=== PATIENT | female | born 1965 | race Two or more races ===

== ENCOUNTER 2016-11-24 19:58 | Inpatient (IN) | payer OTHER ==
[2016-11-24 20:32] VITALS: BMI 25.7
--- NOTE | 2016-11-24 20:32 | HP ---
CIWA Score - CIWA Score Nausea/Vomitin-Mild Nausea/No Vomiting Muscle Tremors: 3 Anxiety: 4-Mod. Anxious/Guarded Agitation: 4-Moderately Restless Paroxysmal Sweats: 1-Minimal Palms Moist Orientation: 1-Uncertain about Date Tacttile Disturbances: 0-None Auditory Disturbances: 0-None Visual Disturbances: 0-None Headache: 1-Very Mild CIWA-Ar Total Score: 15 Admission ROS S - HPI Chief Complaint: WITHDRAWAL SX Allergies/Adverse Reactions: Allergies Allergy/AdvReac Type Severity Reaction Status Date / Time No Known Allergies Allergy Verified 11/24/16 20:36 History of Present Illness: 51 YEARS OLD FEMALE WITH LONG HISTORY OF XANAX KLONOPIN NICOTINE DEPENDENCE, HIV HEPATITIS C, AND SCHIZOPHRENIA IS ADMITTED TO DETOX Exam Limitations: No Limitations - Ebola screening Have you traveled outside of the country in the last 21 days: No (N) Have you had contact with anyone from an Ebola affected area: No Have you been sick,other than usual withdrawal symptoms: No Do you have a fever: No - Review of Systems Constitutional: Chills, Loss of Appetite, Changes in sleep, Unexplained wgt Loss EENT: reports: Dental Problems (NO TEETH) Respiratory: reports: SOB with Exertion Cardiac: reports: Palpitations GI: reports: Nausea, Poor Appetite, Poor Fluid Intake, Indigestion, Abdominal cramping : reports: No Symptoms Reported Musculoskeletal: reports: Back Pain, Joint Pain, Muscle Pain, Muscle Weakness ( LEGS), Neck Pain, Joint Stiffness (NECK) Integumentary: reports: Change in Color (LEFT HAND) Neuro: reports: Seizure (LAST EPISODE 07/2016, NO TREATMENT), Tremors Endocrine: reports: No Symptoms Reported Hematology: reports: No Symptoms Reported Psychiatric: reports: Judgement Intact, Anxious, Depressed Other Systems: Reviewed and Negative Patient History - Patient Medical History Hx Anemia: No Hx Asthma: No Hx Chronic Obstructive Pulmonary Disease (COPD): Yes Hx Cancer: No Hx Cardiac Disorders: No Hx Congestive Heart Failure: No Hx Hypertension: No Hx Hypercholesterolemia: No Hx Pacemaker: No HX Cerebrovascular Accident: No Hx Seizures: Yes Hx Dementia: No Hx Diabetes: No Hx Gastrointestinal Disorders: Yes Hx Liver Disease: No Hx Genitourinary Disorders: No Hx Sexually Transmitted Disorders: Yes Hx Renal Disease (ESRD): No Hx Thyroid Disease: No Hx Human Immunodeficiency Virus (HIV): Yes (SINCE AGE 21) Hx Hepatitis C: Yes Hx Depression: No Hx Suicide Attempt: No Hx Bipolar Disorder: No Hx Schizophrenia: Yes - Patient Surgical History Past Surgical History: Yes Hx Neurologic Surgery: Yes (CERVICAL SPINE 1989) Hx Cataract Extraction: No Hx Cardiac Surgery: No Hx Lung Surgery: No Hx Breast Surgery: No Hx Breast Biopsy: No Hx Abdominal Surgery: No Hx Appendectomy: No Hx Cholecystectomy: No Hx Genitourinary Surgery: No Hx Section: Yes (2007) Hx Orthopedic Surgery: No Hx Hysterectomy: No Anesthesia Reaction: No - PPD History Previous Implant?: Yes Documented Results: Negative w/o proof Implanted On Prior R Admission?: No PPD to be Administered?: Yes - Reproductive History Patient is a Female of Child Bearing Age (11 -55 yrs old): Yes Last Menstrual Period: 11/22/14 Patient : No - Smoking Cessation Smoking history: Current every day smoker Have you smoked in the past 12 months: Yes Aproximately how many cigarettes per day: 20 Cigars Per Day: 0 Hx Chewing Tobacco Use: No Initiated information on smoking cessation: Yes 'Breaking Loose' booklet given: 11/24/16 - Substance & Tx. History Hx Alcohol Use: No Hx Substance Use: Yes Substance Use Type: Cocaine, Heroin, Opiates - Substances Abused KLONOPIN Route: Oral Frequency: 3-6 times per week Amount used: 8 MG Age of first use: 48 Date of Last Use: 11/24/16 Alprazolam (Xanax) Route: Oral Frequency: 3-6 times per week Amount used: 6 MG Age of first use: 48 Date of Last Use: 11/15/16 Cocaine Route: Injection Frequency: Daily Amount used: 2 BAGS Age of first use: 18 Date of Last Use: 11/24/16 Alcohol Route: Oral Frequency: Daily Amount used: RUM 1 1/2 PINTS Age of first use: 13 Date of Last Use: 11/23/16 Family Disease History - Family Disease History Family Disease History: Heart Disease: Mother (), Other: Father ( ), Brother (ALCOHOLIC) Admission Physical Exam S - Physical General Appearance: Yes: Appropriately Dressed, Mild Distress, Thin, Tremorous, Irritable, Sweating, Anxious HEENTM: Yes: Hearing grossly Normal, Normal ENT Inspection, Normocephalic, Normal Voice Respiratory: Yes: Chest Non-Tender, Lungs Clear, Normal Breath Sounds, No Respiratory Distress, No Accessory Muscle Use Neck: Yes: Supple, Trachea in good position Breast: Yes: Breasts Symetrical Cardiology: Yes: Regular Rhythm, Regular Rate, S1, S2 Abdominal: Yes: Non Tender, Soft Genitourinary: Yes: Within Normal Limits Back: Yes: Normal Inspection Musculoskeletal: Yes: Gait Steady, Back pain, Joint Stiffness, Muscle Pain, Muscle weakness (LEGS WHEEL CHAIR X 3 YEARS) Extremities: Yes: Normal Inspection, Non-Tender, Tremors, Other (WEAKNESS OF BOTH LEGS) Neurological: Yes: Alert, Normal Response, Depressed Affect Integumentary: Yes: Warm, Track [place] Lymphatic: Yes: Within Normal Limits - Diagnostic (1) Alcohol dependence with uncomplicated withdrawal Current Visit: Yes Status: Acute Comment: LIBRIUM REGIMEN (2) Methadone maintenance therapy patient Current Visit: Yes Status: Acute Comment: 180 MG DIALY VERIFICAITON PENDING (3) Nicotine dependence Current Visit: Yes Status: Acute Qualifiers: Nicotine product type: cigarettes Substance use status: in withdrawal Qualified Code(s): F17.213 - Nicotine dependence, cigarettes, with withdrawal (4) HIV (human immunodeficiency virus infection) Current Visit: Yes Status: Chronic Comment: PATIENT HAS NOT BRING IN HER OWN MEDICATION (5) Hepatitis C antibody positive in blood Current Visit: Yes Status: Chronic (6) Walker as ambulation aid Current Visit: Yes Status: Chronic Comment: X 3 YEARS (7) S/P cervical discectomy Current Visit: Yes Status: Resolved (8) Weight loss Current Visit: Yes Status: Acute (9) Dry eyes Current Visit: Yes Status: Acute (10) GERD (gastroesophageal reflux disease) Current Visit: Yes Status: Acute Qualifiers: Esophagitis presence: without esophagitis Qualified Code(s): K21.9 - Gastro-esophageal reflux disease without esophagitis Cleared for Admission [facility] - Detox or Rehab [facility] Level of Care: Medically Managed Detox Regimen/Protocol: Librium
[2016-11-24] MEDS ORDERED: ACETAMINOPHEN 325 MG TABLET (FP) PO PRN (20:53)
[2016-11-24] MEDS ORDERED: MAG HYDROX/AL HYDROX/SIMETH 30 ML UNIT-DOSE CUP PO PRN (20:53)
[2016-11-24] MEDS ORDERED: MAGNESIUM HYDROX 2400MG/30ML ORAL SUSPENSION 30 ML CUP PO PRN (20:53)
[2016-11-24] MEDS ORDERED: diphenhydrAMINE HCL 50 MG CAPSULE PO PRN (20:53)
[2016-11-24] MEDS ORDERED: chlordiazePOXIDE HCL 25 MG CAPSULE PO PRN (20:53)
[2016-11-24] MEDS ORDERED: guaiFENesin/D-METHORPHAN HB 10 ML UNIT-DOSE CUPS PO PRN (20:53)
[2016-11-24] MEDS ORDERED: MAGNESIUM CITRATE 300 ML BOTTLE PO PRN (20:53)
[2016-11-24] MEDS ORDERED: LOPERAMIDE HCL 2 MG CAPSULE PO PRN (20:53)
[2016-11-24] MEDS ORDERED: P-EPHED 60MG/TRIPROLIDI 2.5MG TABLET PO PRN (20:53)
[2016-11-24] MEDS ORDERED: NICOTINE POLACRILEX 2 MG GUM BC PRN (20:53)
[2016-11-24] MEDS ORDERED: COLLOIDAL OATMEAL 1 BAR EACH TP PRN (20:59)
[2016-11-24] MEDS: THIAMINE HCL 100 MG TABLET (FP) PO SCH (22:30)
[2016-11-24] MEDS: RANITIDINE HCL 150 MG TABLET (FP) PO SCH (22:31)
[2016-11-24] MEDS: NAPROXEN 500 MG TABLET (FP) PO PRN (22:31)
[2016-11-24] MEDS: chlordiazePOXIDE HCL 25 MG CAPSULE PO SCH (22:31)
[2016-11-24] MEDS: CYCLOBENZAPRINE HCL 10 MG TABLET (FP) PO PRN (22:31)
[2016-11-24] MEDS: MINERAL OIL/PETROLAT/WATER TOPICAL CREAM 113 GM JAR TP SCH (22:48)
[2016-11-24] MEDS: ARTIFICIAL TEARS (POLYVINYL ALCOHOL 1.4%) OPTH DROPS OU SCH (22:48)
[2016-11-24 22:55] LABS: URINE APPEARANCE SLCLOUDY; URINE BILIRUBIN NEGATIVE (NEGATIVE); URINE BLOOD NEGATIVE (NEGATIVE); URINE COLOR DKYELLOW; URINE GLUCOSE (UA) NEGATIVE (NEGATIVE); URINE KETONE NEGATIVE (NEGATIVE); URINE NITRITE NEGATIVE (NEGATIVE); URINE PROTEIN NEGATIVE (NEGATIVE); URINE UROBILINOGEN NEGATIVE E.U./dl (0.2-1.0)
[2016-11-24 22:56] LABS: URINE LEUK ESTERASE 1+ (NEGATIVE)
[2016-11-24 23:04] LABS: URINE BACTERIA RARE /hpf (NONE SEEN); URINE HYALINE CAST 1 /lpf; URINE MUCUS MANY; URINE RBC 2 /hpf (0-3); URINE WBC 2 /hpf (3-5)
[2016-11-25] MEDS: chlordiazePOXIDE HCL 25 MG CAPSULE PO SCH ×4 (06:04→22:33)
[2016-11-25] MEDS ORDERED: METHADONE HCL 10 MG TABLET PO ONE (09:02)
[2016-11-25] MEDS ORDERED: METHADONE 160 MG, METHADONE 20 MG PO ONE (09:20)
[2016-11-25 09:49] LABS: MCH 21.6 pg (25.7-33.7); MCHC 29.6 g/dl (32.0-36.0); MEAN PLT VOLUME 9.7 fl (7.5-11.1); PLATELET COUNT 177 K/MM3 (134-434); RDW 23.8 % (11.6-15.6)
[2016-11-25 10:24] LABS: ALK PHOS 91 U/L (45-117); ANION GAP 8 (8-16); BILIRUBIN,TOTAL 0.1 mg/dL (0.2-1.0); CALCIUM 8.6 mg/dL (8.5-10.1); CO2 27 mmol/L (21-32); CREATININE 0.9 mg/dL (0.55-1.02); GLUCOSE,RANDOM 81 mg/dL (74-106); SGOT/AST 23 U/L (15-37); SGPT/ALT 15 U/L (12-78); TOT PROT 6.6 g/dl (6.4-8.2)
[2016-11-25] MEDS ORDERED: METHADONE HCL 40 MG DISPERSABLE TABLET ONE (10:35)
[2016-11-25] MEDS ORDERED: METHADONE HCL 10 MG TABLET ONE (10:35)
[2016-11-25] MEDS: RANITIDINE HCL 150 MG TABLET (FP) PO SCH ×2 (10:39→22:32)
[2016-11-25] MEDS: PRENATAL VITAMINS W/ FOLIC ACID TABLET (FP) PO SCH (10:39)
[2016-11-25] MEDS: ARTIFICIAL TEARS (POLYVINYL ALCOHOL 1.4%) OPTH DROPS OU SCH ×4 (10:43→22:31)
--- NOTE | 2016-11-25 10:46 | EKG ---
Test Reason : Blood Pressure : / mmHG Vent. Rate : 065 BPM Atrial Rate : 065 BPM P-R Int : 162 ms QRS Dur : 086 ms QT Int : 434 ms P-R-T Axes : 038 005 006 degrees QTc Int : 451 ms NORMAL SINUS RHYTHM NORMAL ECG NO PREVIOUS ECGS AVAILABLE Confirmed by KYLE GARRETT MD ([id number]) on 11/25/2016 10:45:54 AM Referred By: Confirmed By:KYLE GARRETT MD
--- NOTE | 2016-11-25 10:58 | PN ---
S CIWA - CIWA Score Nausea/Vomitin Muscle Tremors: 2 Anxiety: 3 Agitation: 3 Paroxysmal Sweats: 3 Orientation: 0-Oriented Tacttile Disturbances: 2-Mild Itch/Numbness/Burn Auditory Disturbances: 0-None Visual Disturbances: 0-None Headache: 0-None Present CIWA-Ar Total Score: 15 S Progress Note (SOAP) Subjective: interrupted sleep, sweats, edgy Objective: 11/25/16 10:55 Vital Signs Temperature 99.1 F 11/25/16 10:08 Pulse Rate 68 11/25/16 10:08 Respiratory Rate 16 11/25/16 10:08 Blood Pressure 97/50 11/25/16 10:08 O2 Sat by Pulse Oximetry (%) Laboratory Tests 11/24/16 11/25/16 11/25/16 22:40 07:00 07:00 WBC 3.0 L RBC 3.87 Hgb 8.4 L Hct 28.2 L MCV 73.0 L MCHC 29.6 L RDW 23.8 H Plt Count 177 MPV 9.7 Sodium 141 Potassium 4.4 Chloride 106 Carbon Dioxide 27 Anion Gap 8 BUN 24 H Creatinine 0.9 Creat Clearance w eGFR > 60 Random Glucose 81 Calcium 8.6 Total Bilirubin 0.1 L AST 23 ALT 15 Alkaline Phosphatase 91 Total Protein 6.6 Albumin 3.0 L Urine Color Dkyellow Urine Appearance Slcloudy Urine pH 5.0 Ur Specific [place] 1.024 Urine Protein Negative Urine Glucose (UA) Negative Urine Ketones Negative Urine Blood Negative Urine Nitrite Negative Urine Bilirubin Negative Urine Urobilinogen Negative Ur Leukocyte Esterase 1+ H Urine RBC 2 Urine WBC 2 Ur Epithelial Cells Few Urine Bacteria Rare Hyaline Casts 1 Urine Mucus Many pt aox3 in nad ambulating hunched over with walker well healed c/s , neck scars Assessment: 11/25/16 10:56 withdrawl sx's anemia s/p c/s surgery Plan: cont. detox increase fluids lidocaine patch [id number] 325mg bid
[2016-11-25] MEDS ORDERED: LIDOCAINE 5% TOPICAL PATCH TP ONE (10:59)
[2016-11-25] MEDS: NICOTINE 21 MG/24 HOURS TOPICAL PATCH TD SCH (11:12)
--- NOTE | 2016-11-25 18:00 | CONSULT ---
[facility] Psychiatric Consult - Data Date of interview: 11/25/16 Admission source: [facility] Identifying data: Readmission to [facility] for this 51 y/o female seeking detox treatment on for opioid,benzodiazepine and cocaine dependence.Patient is single,a mother of one,homeless,disabled and supported on [facility] benefits. Substance Abuse History: - Smoking Cessation. Smoking history: Current every day smoker. Have you smoked in the past 12 months: Yes. Aproximately how many cigarettes per day: 20. Cigars Per Day: 0. Hx Chewing Tobacco Use: No. Initiated information on smoking cessation: Yes. 'Breaking Loose' booklet given : 11/24/16. - Substance & Tx. History. Hx Alcohol Use: No. Hx Substance Use: Yes. Substance Use Type: Cocaine, Heroin, Opiates. - Substances Abused. KLONOPIN. Route: Oral. Frequency: 3-6 times per week. Amount used: 8 MG. Age of first use: 48. Date of Last Use: 11/24/16. Alprazolam (Xanax). Route: Oral. Frequency: 3-6 times per week. Amount used: 6 MG. Age of first use: 48. Date of Last Use: 11/15/16. Cocaine. Route: Injection. Frequency : Daily. Amount used: 2 BAGS. Age of first use: 18. Date of Last Use: . Alcohol. Route: Oral. Frequency: Daily. Amount used: RUM 1 1/2 PINTS. Age of first use: 13. Date of Last Use: 11/23/16. Confirmed by patient. Medical History: HIV infection since age 21,GERD,hepatitis C,withdrawal related seizures,COPD and a history of neurosurgery (cervical spine in 1989). Psychiatric History: Patient reports a history of one psychiatric hospitalization years ago.No details offered.Ms Tian declares that she is not on psychotropic medications.She is currently on methadone maintenance (180 mg/ day) at [facility] in the [place].No reported history of suicide attempts. Physical/Sexual Abuse/Trauma History: Patient denies. Mental Status Exam - Mental Status Exam Alert and Oriented to: Time, Place, Person Cognitive Function: Grossly Intact Patient Appearance: Unkempt, Disheveled Mood: Withdrawn Affect: Normal Range Patient Behavior: Appropriate, Cooperative Speech Pattern: Clear Voice Loudness: Normal Thought Process: Goal Oriented Thought Disorder: Not Present Hallucinations: Denies Suicidal Ideation: Denies Homicidal Ideation: Denies Insight/Judgement: Poor Sleep: Poorly, Difficulty falling asleep Appetite: Good Gait/Station: Other (moves around with a rollator) Psychiatric Findings - Problem List ([place] 1, 2,3) (1) Methadone maintenance therapy patient Current Visit: Yes Status: Acute Comment: 180 MG DIALY VERIFICAITON PENDING (2) Sedative, hypnotic, or anxiolytic withdrawal Current Visit: Yes Status: Acute (3) Nicotine dependence Current Visit: Yes Status: Acute Qualifiers: Nicotine product type: cigarettes Substance use status: in withdrawal Qualified Code(s): F17.213 - Nicotine dependence, cigarettes, with withdrawal (4) GERD (gastroesophageal reflux disease) Current Visit: Yes Status: Chronic Qualifiers: Esophagitis presence: without esophagitis Qualified Code(s): K21.9 - Gastro-esophageal reflux disease without esophagitis (5) HIV (human immunodeficiency virus infection) Current Visit: Yes Status: Chronic Comment: PATIENT HAS NOT BRING IN HER OWN MEDICATION (6) Hepatitis C antibody positive in blood Current Visit: Yes Status: Chronic (7) Walker as ambulation aid Current Visit: Yes Status: Chronic Comment: X 3 YEARS (8) S/P cervical discectomy Current Visit: Yes Status: Resolved (9) Insomnia Current Visit: Yes Status: Acute - Initial Treatment Plan Initial Treatment Plan: Psychoeducation.Detoxification.Insomnia is addressed with benadryl 50 mg po hs prn.Side effects/benefits discussed.Patient agrees with this plan.Observation.Fall precautions.
[2016-11-25] MEDS: FERROUS SO4 325 MG TABLET (FP) PO SCH (18:03)
[2016-11-25] MEDS: NAPROXEN 500 MG TABLET (FP) PO PRN (18:06)
[2016-11-25] MEDS: THIAMINE HCL 100 MG TABLET (FP) PO SCH (22:32)
[2016-11-25] MEDS: CYCLOBENZAPRINE HCL 10 MG TABLET (FP) PO PRN (22:32)
[2016-11-25] MEDS: MINERAL OIL/PETROLAT/WATER TOPICAL CREAM 113 GM JAR TP SCH (22:34)
--- NOTE | 2016-11-25 23:07 | PN ---
S Progress Note Note: PATIENT ASSESSED AFTER FALLING IN THE DAY ROOM. SHE IS ALERT AND ORIENTED TO SELF AND DATE. SHE STATED SHE WENT SIT ON HER ROLLATOR BUT THE BRAKES WERE NOT ON AND THE ROLLATOR ROLLED AWAY. SHE FELL ON HER BUTTOCKS. NO BRUISES WERE NOTED. PATIENT HAD MILD TENDERNESS ON PALPATION. FALL PROTOCOL 2 WAS INITIATED AND PATIENT WAS ADVISED TO ENSURE THAT THE BRAKES ARE ON WHEN SHE SITS ON THE DEVICE. PT. WAS EDUCATED ON FALL PRECAUTIONS; SHE VERBALIZED UNDERSTANDING. Last Vital Signs Temp Pulse Resp BP Pulse Ox 99 F 70 20 113/66 11/25/16 19:04 11/25/16 19:04 11/25/16 19:04 11/25/16 19:04
[2016-11-26] MEDS ORDERED: METHADONE HCL 10 MG TABLET ONE (05:31)
[2016-11-26] MEDS ORDERED: METHADONE HCL 40 MG DISPERSABLE TABLET ONE (05:32)
[2016-11-26] MEDS: METHADONE 160 MG, METHADONE 20 MG PO SCH (05:59)
[2016-11-26] MEDS: chlordiazePOXIDE HCL 25 MG CAPSULE PO SCH ×3 (05:59→17:26)
[2016-11-26] MEDS ORDERED: METHADONE HCL 10 MG TABLET PO SCH (06:00)
[2016-11-26] MEDS: NAPROXEN 500 MG TABLET (FP) PO PRN (06:04)
[2016-11-26] MEDS: PRENATAL VITAMINS W/ FOLIC ACID TABLET (FP) PO SCH (10:12)
[2016-11-26] MEDS: FERROUS SO4 325 MG TABLET (FP) PO SCH ×2 (10:12→17:27)
[2016-11-26] MEDS: RANITIDINE HCL 150 MG TABLET (FP) PO SCH ×2 (10:12→22:32)
[2016-11-26] MEDS: ARTIFICIAL TEARS (POLYVINYL ALCOHOL 1.4%) OPTH DROPS OU SCH ×4 (10:13→22:32)
[2016-11-26] MEDS: LIDOCAINE 5% TOPICAL PATCH TP SCH (10:14)
[2016-11-26] MEDS: NICOTINE 21 MG/24 HOURS TOPICAL PATCH TD SCH (10:16)
[2016-11-26] MEDS: CYCLOBENZAPRINE HCL 10 MG TABLET (FP) PO PRN (10:16)
--- NOTE | 2016-11-26 11:29 | PN ---
[facility] CIWA - CIWA Score Nausea/Vomitin-No Nausea/No Vomiting Muscle Tremors: 3 Anxiety: 3 Agitation: 3 Paroxysmal Sweats: 3 Orientation: 0-Oriented Tacttile Disturbances: 0-None Auditory Disturbances: 0-None Visual Disturbances: 0-None Headache: 0-None Present CIWA-Ar Total Score: 12 [facility] Progress Note (SOAP) Subjective: chronic back pain sweats interrupted sleep Objective: 11/26/16 11:28 Vital Signs Temperature 97.7 F 11/26/16 10:20 Pulse Rate 76 11/26/16 10:20 Respiratory Rate 20 11/26/16 10:20 Blood Pressure 114/67 11/26/16 10:20 O2 Sat by Pulse Oximetry (%) Laboratory Tests 11/24/16 11/25/16 11/25/16 22:40 07:00 07:00 WBC 3.0 L RBC 3.87 Hgb 8.4 L Hct 28.2 L MCV 73.0 L MCHC 29.6 L RDW 23.8 H Plt Count 177 MPV 9.7 Sodium 141 Potassium 4.4 Chloride 106 Carbon Dioxide 27 Anion Gap 8 BUN 24 H Creatinine 0.9 Creat Clearance w eGFR > 60 Random Glucose 81 Calcium 8.6 Total Bilirubin 0.1 L AST 23 ALT 15 Alkaline Phosphatase 91 Total Protein 6.6 Albumin 3.0 L Urine Color Dkyellow Urine Appearance Slcloudy Urine pH 5.0 Ur Specific [place] 1.024 Urine Protein Negative Urine Glucose (UA) Negative Urine Ketones Negative Urine Blood Negative Urine Nitrite Negative Urine Bilirubin Negative Urine Urobilinogen Negative Ur Leukocyte Esterase 1+ H Urine RBC 2 Urine WBC 2 Ur Epithelial Cells Few Urine Bacteria Rare Hyaline Casts 1 Urine Mucus Many RPR Titer 11/25/16 07:00 WBC RBC Hgb Hct MCV MCHC RDW Plt Count MPV Sodium Potassium Chloride Carbon Dioxide Anion Gap BUN Creatinine Creat Clearance w eGFR Random Glucose Calcium Total Bilirubin AST ALT Alkaline Phosphatase Total Protein Albumin Urine Color Urine Appearance Urine pH Ur Specific [place] Urine Protein Urine Glucose (UA) Urine Ketones Urine Blood Urine Nitrite Urine Bilirubin Urine Urobilinogen Ur Leukocyte Esterase Urine RBC Urine WBC Ur Epithelial Cells Urine Bacteria Hyaline Casts Urine Mucus RPR Titer Nonreactive awake/alert ambulating safely with rollator no acute distress Assessment: 11/26/16 11:29 withdrawal sx Plan: continue detox increase fluids motrin 800mg tid d/c naproxen analgesic balm
[2016-11-26] MEDS ORDERED: IBUPROFEN 400 MG TABLET (FP) PO SCH (11:45)
[2016-11-26] MEDS: MENTHOL/PHENOL 1 EACH UD MM PRN (13:36)
[2016-11-26] MEDS ORDERED: NAPROXEN 500 MG TABLET (FP) PO SCH (22:00)
[2016-11-26] MEDS: chlordiazePOXIDE 5 MG CAPSULE PO SCH (22:32)
[2016-11-26] MEDS: THIAMINE HCL 100 MG TABLET (FP) PO SCH (22:32)
[2016-11-26] MEDS: NAPROXEN 500 MG TABLET (FP) PO SCH (22:32)
[2016-11-26] MEDS: METHYL SALICYLATE/MENTHOL OINT 30 GM TUBE TP SCH (22:37)
[2016-11-26] MEDS: MINERAL OIL/PETROLAT/WATER TOPICAL CREAM 113 GM JAR TP SCH (22:37)
[2016-11-27] MEDS ORDERED: METHADONE HCL 40 MG DISPERSABLE TABLET ONE (05:34)
[2016-11-27] MEDS ORDERED: METHADONE HCL 10 MG TABLET ONE (05:34)
[2016-11-27] MEDS: chlordiazePOXIDE 5 MG CAPSULE PO SCH ×3 (05:36→17:59)
[2016-11-27] MEDS: METHADONE 160 MG, METHADONE 20 MG PO SCH (05:36)
[2016-11-27] MEDS: FERROUS SO4 325 MG TABLET (FP) PO SCH ×2 (07:19→17:59)
[2016-11-27] MEDS: NICOTINE 21 MG/24 HOURS TOPICAL PATCH TD SCH (10:29)
[2016-11-27] MEDS: PRENATAL VITAMINS W/ FOLIC ACID TABLET (FP) PO SCH (10:29)
[2016-11-27] MEDS: RANITIDINE HCL 150 MG TABLET (FP) PO SCH ×2 (10:29→22:44)
[2016-11-27] MEDS: NAPROXEN 500 MG TABLET (FP) PO SCH ×2 (10:29→22:44)
[2016-11-27] MEDS: METHYL SALICYLATE/MENTHOL OINT 30 GM TUBE TP SCH ×2 (10:31→22:45)
[2016-11-27] MEDS: LIDOCAINE 5% TOPICAL PATCH TP SCH (10:31)
[2016-11-27] MEDS: ARTIFICIAL TEARS (POLYVINYL ALCOHOL 1.4%) OPTH DROPS OU SCH ×4 (10:31→22:44)
--- NOTE | 2016-11-27 13:51 | PN ---
[facility] Progress Note (SOAP) Subjective: interrupted sleep anxious , sleepy Objective: 11/27/16 13:48 Vital Signs Temperature 98.1 F 11/27/16 09:39 Pulse Rate 72 11/27/16 09:39 Respiratory Rate 16 11/27/16 09:39 Blood Pressure 102/54 11/27/16 09:39 O2 Sat by Pulse Oximetry (%) Laboratory Tests 11/24/16 11/25/16 11/25/16 22:40 07:00 07:00 WBC 3.0 L RBC 3.87 Hgb 8.4 L Hct 28.2 L MCV 73.0 L MCHC 29.6 L RDW 23.8 H Plt Count 177 MPV 9.7 Sodium 141 Potassium 4.4 Chloride 106 Carbon Dioxide 27 Anion Gap 8 BUN 24 H Creatinine 0.9 Creat Clearance w eGFR > 60 Random Glucose 81 Calcium 8.6 Total Bilirubin 0.1 L AST 23 ALT 15 Alkaline Phosphatase 91 Total Protein 6.6 Albumin 3.0 L Urine Color Dkyellow Urine Appearance Slcloudy Urine pH 5.0 Ur Specific [place] 1.024 Urine Protein Negative Urine Glucose (UA) Negative Urine Ketones Negative Urine Blood Negative Urine Nitrite Negative Urine Bilirubin Negative Urine Urobilinogen Negative Ur Leukocyte Esterase 1+ H Urine RBC 2 Urine WBC 2 Ur Epithelial Cells Few Urine Bacteria Rare Hyaline Casts 1 Urine Mucus Many RPR Titer 11/25/16 07:00 WBC RBC Hgb Hct MCV MCHC RDW Plt Count MPV Sodium Potassium Chloride Carbon Dioxide Anion Gap BUN Creatinine Creat Clearance w eGFR Random Glucose Calcium Total Bilirubin AST ALT Alkaline Phosphatase Total Protein Albumin Urine Color Urine Appearance Urine pH Ur Specific [place] Urine Protein Urine Glucose (UA) Urine Ketones Urine Blood Urine Nitrite Urine Bilirubin Urine Urobilinogen Ur Leukocyte Esterase Urine RBC Urine WBC Ur Epithelial Cells Urine Bacteria Hyaline Casts Urine Mucus RPR Titer Nonreactive pt aox3 in nad sitting in walker appearing sedated but arousable and responding appropriately Assessment: 11/27/16 13:49 withdrawl sx;s Plan: cont. detox increase fluids cont to monitor MS if improved d/c steven cxr for ppd +
[2016-11-27] MEDS: MENTHOL/PHENOL 1 EACH UD MM PRN (15:21)
[2016-11-27] MEDS: THIAMINE HCL 100 MG TABLET (FP) PO SCH (22:43)
[2016-11-27] MEDS: chlordiazePOXIDE HCL 10 MG CAPSULE PO SCH (22:44)
[2016-11-27] MEDS: MINERAL OIL/PETROLAT/WATER TOPICAL CREAM 113 GM JAR TP SCH (22:45)
[2016-11-28] MEDS ORDERED: METHADONE HCL 10 MG TABLET ONE (04:51)
[2016-11-28] MEDS ORDERED: METHADONE HCL 40 MG DISPERSABLE TABLET ONE (04:52)
[2016-11-28] MEDS: METHADONE 160 MG, METHADONE 20 MG PO SCH (06:31)
[2016-11-28] MEDS: chlordiazePOXIDE HCL 10 MG CAPSULE PO SCH ×2 (06:34→11:01)
[2016-11-28] MEDS: FERROUS SO4 325 MG TABLET (FP) PO SCH (09:22)
[2016-11-28 10:46] VITALS: BP 96/60; PULSE 78; TEMP 97.7
[2016-11-28] MEDS: PRENATAL VITAMINS W/ FOLIC ACID TABLET (FP) PO SCH (10:57)
[2016-11-28] MEDS: NICOTINE 21 MG/24 HOURS TOPICAL PATCH TD SCH (10:57)
[2016-11-28] MEDS: ARTIFICIAL TEARS (POLYVINYL ALCOHOL 1.4%) OPTH DROPS OU SCH (10:58)
[2016-11-28] MEDS: METHYL SALICYLATE/MENTHOL OINT 30 GM TUBE TP SCH (10:58)
[2016-11-28] MEDS: RANITIDINE HCL 150 MG TABLET (FP) PO SCH (10:58)
[2016-11-28] MEDS: LIDOCAINE 5% TOPICAL PATCH TP SCH (10:58)
[2016-11-28] MEDS: NAPROXEN 500 MG TABLET (FP) PO SCH (10:59)
[2016-11-28] MEDS: MENTHOL/PHENOL 1 EACH UD MM PRN (11:02)
--- NOTE | 2016-11-28 13:02 | DS ---
[facility] Detox Discharge Summary Admission Date: 11/24/16 Discharge Date: 11/28/16 - History Present History: Alcohol Dependence, Sedative Dependence Additional Comments: ADVISED PATIENT TO FOLLOW-UP WITH [facility] / REHAB MEDICAL PROVIDER AFTER DISCHARGE FROM DETOX FOR GENERAL MEDICAL ASSESSMENT AND FOR ABNORMAL LAB VALUES. Pertinent Past History: COPD, Seizures, Hep C, HIV +, GERD. - Physical Exam Results Vital Signs: Vital Signs Temperature 97.7 F 11/28/16 10:44 Pulse Rate 78 11/28/16 10:44 Respiratory Rate 20 11/28/16 10:44 Blood Pressure 96/60 11/28/16 10:44 O2 Sat by Pulse Oximetry (%) Pertinent Admission Physical Exam Findings: WITHDRAWAL SYMPTOMS. Laboratory Last Values WBC 3.0 K/mm3 (4.0-10.0) L 11/25/16 07:00 RBC 3.87 M/mm3 (3.60-5.2) 11/25/16 07:00 Hgb 8.4 GM/dL (10.7-15.3) L 11/25/16 07:00 Hct 28.2 % (32.4-45.2) L 11/25/16 07:00 MCV 73.0 fl (80-96) L 11/25/16 07:00 MCHC 29.6 g/dl (32.0-36.0) L 11/25/16 07:00 RDW 23.8 % (11.6-15.6) H 11/25/16 07:00 Plt Count 177 K/MM3 (134-434) 11/25/16 07:00 MPV 9.7 fl (7.5-11.1) 11/25/16 07:00 Sodium 141 mmol/L (136-145) 11/25/16 07:00 Potassium 4.4 mmol/L (3.5-5.1) 11/25/16 07:00 Chloride 106 mmol/L (98-107) 11/25/16 07:00 Carbon Dioxide 27 mmol/L (21-32) 11/25/16 07:00 Anion Gap 8 (8-16) 11/25/16 07:00 BUN 24 mg/dL (7-18) H 11/25/16 07:00 Creatinine 0.9 mg/dL (0.55-1.02) 11/25/16 07:00 Creat Clearance w eGFR > 60 (>60) 11/25/16 07:00 Random Glucose 81 mg/dL (74-106) 11/25/16 07:00 Calcium 8.6 mg/dL (8.5-10.1) 11/25/16 07:00 Total Bilirubin 0.1 mg/dL (0.2-1.0) L 11/25/16 07:00 AST 23 U/L (15-37) 11/25/16 07:00 ALT 15 U/L (12-78) 11/25/16 07:00 Alkaline Phosphatase 91 U/L (45-117) 11/25/16 07:00 Total Protein 6.6 g/dl (6.4-8.2) 11/25/16 07:00 Albumin 3.0 g/dl (3.4-5.0) L 11/25/16 07:00 Urine Color Dkyellow 11/24/16 22:40 Urine Appearance Slcloudy 11/24/16 22:40 Urine pH 5.0 (5.0-8.0) 11/24/16 22:40 Ur Specific [place] 1.024 (1.001-1.035) 11/24/16 22:40 Urine Protein Negative (NEGATIVE) 11/24/16 22:40 Urine Glucose (UA) Negative (NEGATIVE) 11/24/16 22:40 Urine Ketones Negative (NEGATIVE) 11/24/16 22:40 Urine Blood Negative (NEGATIVE) 11/24/16 22:40 Urine Nitrite Negative (NEGATIVE) 11/24/16 22:40 Urine Bilirubin Negative (NEGATIVE) 11/24/16 22:40 Urine Urobilinogen Negative E.U./dl (0.2-1.0) 11/24/16 22:40 Ur Leukocyte Esterase 1+ (NEGATIVE) H 11/24/16 22:40 Urine RBC 2 /hpf (0-3) 11/24/16 22:40 Urine WBC 2 /hpf (3-5) 11/24/16 22:40 Ur Epithelial Cells Few /hpf (FEW) 11/24/16 22:40 Urine Bacteria Rare /hpf (NONE SEEN) 11/24/16 22:40 Hyaline Casts 1 /lpf 11/24/16 22:40 Urine Mucus Many 11/24/16 22:40 RPR Titer Nonreactive (NONREACTIVE) 11/25/16 07:00 LABS NOTED. - Treatment Hospital Course: Detox Protocol Followed, Detoxed Safely, Responded well, Discharged Condition Good, Rehab Referral Accepted Patient has Accepted a Rehab Referral to: YES. - Medication Discharge Medications: Ambulatory Orders Unobtainable [Unobtainable] 11/24/16 - Diagnosis (1) Alcohol dependence with uncomplicated withdrawal Current Visit: Yes Status: Acute (2) Dry eyes Current Visit: Yes Status: Acute (3) Insomnia Current Visit: Yes Status: Acute Qualifiers: Insomnia type: unspecified Qualified Code(s): G47.00 - Insomnia, unspecified (4) Methadone maintenance therapy patient Current Visit: Yes Status: Chronic (5) Nicotine dependence Current Visit: Yes Status: Chronic Qualifiers: Nicotine product type: cigarettes Substance use status: uncomplicated Qualified Code(s): F17.210 - Nicotine dependence, cigarettes, uncomplicated (6) Sedative, hypnotic, or anxiolytic withdrawal Current Visit: Yes Status: Acute (7) Weight loss Current Visit: Yes Status: Acute (8) GERD (gastroesophageal reflux disease) Current Visit: Yes Status: Chronic Qualifiers: Esophagitis presence: without esophagitis Qualified Code(s): K21.9 - Gastro-esophageal reflux disease without esophagitis (9) HIV (human immunodeficiency virus infection) Current Visit: Yes Status: Chronic (10) Hepatitis C antibody positive in blood Current Visit: Yes Status: Chronic (11) Walker as ambulation aid Current Visit: Yes Status: Chronic (12) S/P cervical discectomy Current Visit: Yes Status: Resolved - AMA Did Patient Leave Against Medical Advice: No
== END 2016-11-28 12:52 | disposition other institution (70) | DRG 773 ==
LOC: YASAS 19:58 → Y6N 21:15
PROVIDERS: ADMIT Internal Medicine Addiction Medicine; ATTEND Internal Medicine Addiction Medicine
PROC: HZ2ZZZZ Detoxification Services for Substance Abuse Treatment (ICD-10-PCS; principal; 2016-11-28)
DX: F11.23 Opioid dependence with withdrawal (principal); F13.230 Sedative, hypnotic or anxiolytic dependence with withdrawal, uncomplicated; F17.213 Nicotine dependence, cigarettes, with withdrawal; N18.2 Chronic kidney disease, stage 2 (mild); G47.00 Insomnia, unspecified; K21.9 Gastro-esophageal reflux disease without esophagitis; R63.4 Abnormal weight loss; Z68.25 Body mass index [BMI] 25.0-25.9, adult; Z98.890 Other specified postprocedural states
CPT/HCPCS: 36415; 71020-TC; 80053; 81003; 81015; 85027; 86593; 93005; 93010

== ENCOUNTER 2016-11-28 13:29 | Inpatient (IN) | payer OTHER ==
[2016-11-28] MEDS ORDERED: LOPERAMIDE HCL 2 MG CAPSULE PO PRN (13:49)
[2016-11-28] MEDS ORDERED: NICOTINE POLACRILEX 2 MG GUM BUC PRN (13:49)
[2016-11-28] MEDS ORDERED: IBUPROFEN 400 MG TABLET (FP) PO PRN (13:49)
[2016-11-28] MEDS ORDERED: MAGNESIUM CITRATE 300 ML BOTTLE PO PRN (13:49)
[2016-11-28] MEDS ORDERED: MAGNESIUM HYDROX 2400MG/30ML ORAL SUSPENSION 30 ML CUP PO PRN (13:49)
[2016-11-28] MEDS ORDERED: guaiFENesin/D-METHORPHAN HB 10 ML UNIT-DOSE CUPS PO PRN (13:49)
--- NOTE | 2016-11-28 13:58 | HP ---
[facility] Assess/Revision - Admission History Admitted to Rehab from: [facility] [place] Date of Admission to Rehab: 11/28/16 - Vital signs Vital Signs: BP 118/73 P 64 R 18 T97.5 - Findings Detox History & Physical reviewed: Yes Concur with findings: Yes
--- NOTE | 2016-11-28 14:15 | HP ---
Psychiatrist Admission - Data Date of interview: 11/28/16 Admission source: [address] [place] [address] Identifying data: This is the first admission to [address] [place] [address] rehabilitation for this 51 years old H single mother of one,undomiciled, supported by SSD. Medical History: Significant for HIV+,Hep C,COPD,GERD,H/O Neurosurgery(servical spine in 1989). Psychiatric History: She has long psychiatric history started back in [place] in 1979.Patient was on different antidepressants including Zoloft, Seroquel,Trazodone.Reports 1 psychiatric hospitalization to [facility], [place], operated by [facility] many years back,no recollection and details about this admission.She was dx with MDD.Denies suicidal attemts.No psychiatric treatment recently.No medications were ordered while in detox.Patient is willing to restart Seroquel for her mood stability and insomnia. Physical/Sexual Abuse/Trauma History: denies Allergies/Adverse Reactions: Allergies Allergy/AdvReac Type Severity Reaction Status Date / Time No Known Allergies Allergy Verified 11/24/16 20:36 Date of last physical exam: 11/24/16 Concur with the findings of this exam: Yes - Substance Abuse/Tx History Hx Alcohol Use: Yes (reports drinking since 13 yo,Rum 1 1/2 pints daily) Hx Substance Use: Yes (crack since 18 yo,2 bags,Xanax since 48 yo,6 mg daily, [id number] mg ) Substance Use Type: Alcohol, Cocaine, Opiates, Tranquilizers Hx Substance Use Treatment: Yes (completed a few inpatient rehab programs, longest abstinenca-7 years) - Admission Criteria Previous failed treatment: Yes Poor recovery environment: Yes Comorbidities: Yes Lacks judgement: Yes Mental Status Exam - Mental Status Exam Alert and Oriented to: Time, Place, Person Cognitive Function: Grossly Intact Patient Appearance: Unkempt Mood: Apathetic Affect: Mood Congruent Patient Behavior: Passive, Sedated Speech Pattern: Unclear Voice Loudness: Mildly Soft/Quiet Thought Process: Goal Oriented Thought Disorder: Not Present Hallucinations: Denies Suicidal Ideation: Denies Homicidal Ideation: Denies Insight/Judgement: Fair Sleep: Fair Appetite: Fair Muscle strength/Tone: Normal Gait/Station: Normal Psychiatric Findings - Problem List ([place] 1, 2,3) (1) Alcohol dependence with uncomplicated withdrawal Current Visit: Yes Status: Chronic Comment: LIBRIUM REGIMEN (2) Sedative, hypnotic, or anxiolytic withdrawal Current Visit: Yes Status: Chronic (3) Weight loss Current Visit: Yes Status: Acute (4) GERD (gastroesophageal reflux disease) Current Visit: Yes Status: Chronic Qualifiers: (5) HIV (human immunodeficiency virus infection) Current Visit: Yes Status: Chronic Comment: PATIENT HAS NOT BRING IN HER OWN MEDICATION (6) Hepatitis C antibody positive in blood Current Visit: Yes Status: Chronic (7) Methadone maintenance therapy patient Current Visit: Yes Status: Chronic Comment: 180 MG DIALY VERIFICAITON PENDING (8) Nicotine dependence Current Visit: Yes Status: Chronic Qualifiers: Nicotine product type: cigarettes Substance use status: uncomplicated Qualified Code(s): F17.210 - Nicotine dependence, cigarettes, uncomplicated (9) Opioid dependence Current Visit: Yes Status: Acute (10) Sedative dependence Current Visit: Yes Status: Chronic (11) Cocaine dependence Current Visit: Yes Status: Chronic (12) Substance induced mood disorder Current Visit: Yes Status: Chronic - Initial Treatment Plan Initial Treatment Plan: Start Seroquel 50 mg po bid.Will monitor progress.
[2016-11-28] MEDS: FERROUS SO4 325 MG TABLET (FP) PO SCH (18:00)
[2016-11-28] MEDS: RANITIDINE HCL 150 MG TABLET (FP) PO SCH (21:53)
[2016-11-28] MEDS: NAPROXEN 500 MG TABLET (FP) PO SCH (21:54)
[2016-11-28] MEDS: CYCLOBENZAPRINE HCL 10 MG TABLET (FP) PO SCH (21:54)
[2016-11-28] MEDS: THIAMINE HCL 100 MG TABLET (FP) PO SCH (21:54)
[2016-11-28] MEDS: diphenhydrAMINE HCL 50 MG CAPSULE PO PRN (21:56)
[2016-11-28] MEDS: METHYL SALICYLATE/MENTHOL OINT 30 GM TUBE TP SCH (21:58)
[2016-11-29] MEDS: diphenhydrAMINE HCL 50 MG CAPSULE PO PRN (01:39)
[2016-11-29] MEDS ORDERED: METHADONE HCL 40 MG DISPERSABLE TABLET ONE (05:46)
[2016-11-29] MEDS ORDERED: METHADONE HCL 10 MG TABLET ONE (05:46)
[2016-11-29] MEDS ORDERED: METHADONE HCL 10 MG TABLET PO SCH (06:00)
[2016-11-29] MEDS: METHADONE 160 MG, METHADONE 20 MG PO SCH (06:40)
[2016-11-29] MEDS: MENTHOL/PHENOL 1 EACH UD MM PRN (06:45)
[2016-11-29] MEDS: FERROUS SO4 325 MG TABLET (FP) PO SCH ×2 (07:05→18:28)
[2016-11-29] MEDS: ACETAMINOPHEN 325 MG TABLET (FP) PO PRN (07:07)
[2016-11-29] MEDS: NAPROXEN 500 MG TABLET (FP) PO SCH ×2 (10:32→21:50)
[2016-11-29] MEDS: RANITIDINE HCL 150 MG TABLET (FP) PO SCH ×2 (10:32→21:50)
[2016-11-29] MEDS: PRENATAL VITAMINS W/ FOLIC ACID TABLET (FP) PO SCH (10:32)
[2016-11-29] MEDS: METHYL SALICYLATE/MENTHOL OINT 30 GM TUBE TP SCH ×2 (10:34→21:50)
[2016-11-29] MEDS: NICOTINE 21 MG/24 HOURS TOPICAL PATCH TD SCH (10:34)
[2016-11-29] MEDS: CYCLOBENZAPRINE HCL 10 MG TABLET (FP) PO SCH ×2 (10:34→21:50)
[2016-11-29] MEDS ORDERED: PT OWN MED DRAWER 7, Y5N ONE ×2 (10:35→19:33)
[2016-11-29] MEDS ORDERED: QUEtiapine FUMARATE 100 MG TABLET (FP) PO SCH (11:45)
[2016-11-29] MEDS ORDERED: INFLUENZA VACCINE 45 MCG/0.5 ML (MDV 16-17) IM ONE (12:00)
[2016-11-29] MEDS ORDERED: PNEUMOC 13-VAL CONJ-DIP CRM/PF 0.5 ML DISP.SYRIN IM ONE (12:00)
[2016-11-29] MEDS: QUEtiapine FUMARATE 50 MG TABLET PO SCH (21:49)
[2016-11-29] MEDS: THIAMINE HCL 100 MG TABLET (FP) PO SCH (21:49)
[2016-11-30] MEDS ORDERED: METHADONE HCL 40 MG DISPERSABLE TABLET ONE (05:48)
[2016-11-30] MEDS ORDERED: METHADONE HCL 10 MG TABLET ONE (05:48)
[2016-11-30] MEDS: METHADONE 160 MG, METHADONE 20 MG PO SCH (06:52)
[2016-11-30] MEDS: ACETAMINOPHEN 325 MG TABLET (FP) PO PRN (07:37)
[2016-11-30] MEDS: FERROUS SO4 325 MG TABLET (FP) PO SCH ×2 (07:38→17:30)
[2016-11-30] MEDS: NICOTINE 21 MG/24 HOURS TOPICAL PATCH TD SCH (10:24)
[2016-11-30] MEDS: PRENATAL VITAMINS W/ FOLIC ACID TABLET (FP) PO SCH (10:24)
[2016-11-30] MEDS: QUEtiapine FUMARATE 50 MG TABLET PO SCH ×2 (10:24→21:48)
[2016-11-30] MEDS: CYCLOBENZAPRINE HCL 10 MG TABLET (FP) PO SCH ×2 (10:24→21:48)
[2016-11-30] MEDS: NAPROXEN 500 MG TABLET (FP) PO SCH ×2 (10:24→21:48)
[2016-11-30] MEDS: RANITIDINE HCL 150 MG TABLET (FP) PO SCH ×2 (10:24→21:48)
[2016-11-30] MEDS: METHYL SALICYLATE/MENTHOL OINT 30 GM TUBE TP SCH ×2 (10:25→21:49)
[2016-11-30] MEDS: ARTIFICIAL TEARS (POLYVINYL ALCOHOL 1.4%) OPTH DROPS OU SCH ×2 (10:25→21:48)
[2016-11-30] MEDS: MENTHOL/PHENOL 1 EACH UD MM PRN (10:27)
[2016-11-30] MEDS ORDERED: PT OWN MED DRAWER 7, Y5N ONE ×2 (21:47→23:34)
[2016-11-30] MEDS: THIAMINE HCL 100 MG TABLET (FP) PO SCH (21:50)
[2016-12-01] MEDS ORDERED: METHADONE HCL 40 MG DISPERSABLE TABLET ONE (05:45)
[2016-12-01] MEDS ORDERED: METHADONE HCL 10 MG TABLET ONE (05:45)
[2016-12-01] MEDS: METHADONE 160 MG, METHADONE 20 MG PO SCH (06:54)
[2016-12-01] MEDS: FERROUS SO4 325 MG TABLET (FP) PO SCH ×2 (08:31→17:33)
[2016-12-01] MEDS: ARTIFICIAL TEARS (POLYVINYL ALCOHOL 1.4%) OPTH DROPS OU SCH ×2 (10:15→21:51)
[2016-12-01] MEDS: QUEtiapine FUMARATE 50 MG TABLET PO SCH ×2 (10:16→21:50)
[2016-12-01] MEDS: NAPROXEN 500 MG TABLET (FP) PO SCH ×2 (10:16→21:50)
[2016-12-01] MEDS: METHYL SALICYLATE/MENTHOL OINT 30 GM TUBE TP SCH ×2 (10:16→21:51)
[2016-12-01] MEDS: PRENATAL VITAMINS W/ FOLIC ACID TABLET (FP) PO SCH (10:17)
[2016-12-01] MEDS: RANITIDINE HCL 150 MG TABLET (FP) PO SCH ×2 (10:17→21:50)
[2016-12-01] MEDS: NICOTINE 21 MG/24 HOURS TOPICAL PATCH TD SCH (10:17)
[2016-12-01] MEDS: CYCLOBENZAPRINE HCL 10 MG TABLET (FP) PO SCH ×2 (10:24→21:50)
[2016-12-01] MEDS: MENTHOL/PHENOL 1 EACH UD MM PRN (10:25)
[2016-12-01] MEDS ORDERED: PT OWN MED DRAWER 7, Y5N ONE (20:25)
[2016-12-01] MEDS: THIAMINE HCL 100 MG TABLET (FP) PO SCH (21:50)
[2016-12-02] MEDS ORDERED: METHADONE HCL 10 MG TABLET ONE (05:24)
[2016-12-02] MEDS ORDERED: METHADONE HCL 40 MG DISPERSABLE TABLET ONE (05:24)
[2016-12-02] MEDS: METHADONE 160 MG, METHADONE 20 MG PO SCH (06:25)
[2016-12-02] MEDS: FERROUS SO4 325 MG TABLET (FP) PO SCH ×2 (07:26→17:58)
[2016-12-02] MEDS: ARTIFICIAL TEARS (POLYVINYL ALCOHOL 1.4%) OPTH DROPS OU SCH ×2 (09:43→22:01)
[2016-12-02] MEDS: NICOTINE 21 MG/24 HOURS TOPICAL PATCH TD SCH (09:44)
[2016-12-02] MEDS: NAPROXEN 500 MG TABLET (FP) PO SCH ×2 (09:45→21:59)
[2016-12-02] MEDS: CYCLOBENZAPRINE HCL 10 MG TABLET (FP) PO SCH ×2 (09:45→22:00)
[2016-12-02] MEDS: PRENATAL VITAMINS W/ FOLIC ACID TABLET (FP) PO SCH (09:45)
[2016-12-02] MEDS: RANITIDINE HCL 150 MG TABLET (FP) PO SCH ×2 (09:45→17:59)
[2016-12-02] MEDS: METHYL SALICYLATE/MENTHOL OINT 30 GM TUBE TP SCH ×2 (09:45→21:59)
[2016-12-02] MEDS: QUEtiapine FUMARATE 50 MG TABLET PO SCH ×2 (09:45→21:59)
[2016-12-02] MEDS: MENTHOL/PHENOL 1 EACH UD MM PRN (09:47)
[2016-12-02] MEDS ORDERED: PT OWN MED DRAWER 7, Y5N ONE (18:31)
[2016-12-02] MEDS: THIAMINE HCL 100 MG TABLET (FP) PO SCH (21:58)
[2016-12-03] MEDS ORDERED: METHADONE HCL 40 MG DISPERSABLE TABLET ONE (03:14)
[2016-12-03] MEDS ORDERED: METHADONE HCL 10 MG TABLET ONE (03:14)
[2016-12-03] MEDS: METHADONE 160 MG, METHADONE 20 MG PO SCH (07:03)
[2016-12-03] MEDS: RANITIDINE HCL 150 MG TABLET (FP) PO SCH ×2 (07:04→17:18)
[2016-12-03] MEDS: FERROUS SO4 325 MG TABLET (FP) PO SCH ×2 (08:39→17:18)
[2016-12-03] MEDS ORDERED: PT OWN MED DRAWER 7, Y5N ONE (08:58)
[2016-12-03] MEDS: ARTIFICIAL TEARS (POLYVINYL ALCOHOL 1.4%) OPTH DROPS OU SCH ×2 (09:41→21:52)
[2016-12-03] MEDS: METHYL SALICYLATE/MENTHOL OINT 30 GM TUBE TP SCH ×2 (09:42→21:52)
[2016-12-03] MEDS: PRENATAL VITAMINS W/ FOLIC ACID TABLET (FP) PO SCH (09:43)
[2016-12-03] MEDS: NICOTINE 21 MG/24 HOURS TOPICAL PATCH TD SCH (09:43)
[2016-12-03] MEDS: QUEtiapine FUMARATE 50 MG TABLET PO SCH ×2 (09:43→21:51)
[2016-12-03] MEDS: NAPROXEN 500 MG TABLET (FP) PO SCH ×2 (09:43→21:51)
[2016-12-03] MEDS: CYCLOBENZAPRINE HCL 10 MG TABLET (FP) PO SCH ×2 (09:43→21:51)
[2016-12-03] MEDS: MENTHOL/PHENOL 1 EACH UD MM PRN (09:46)
[2016-12-03] MEDS: MAG HYDROX/AL HYDROX/SIMETH 30 ML UNIT-DOSE CUP PO PRN (17:18)
[2016-12-03] MEDS: THIAMINE HCL 100 MG TABLET (FP) PO SCH (21:51)
[2016-12-04] MEDS ORDERED: METHADONE HCL 10 MG TABLET ONE (03:16)
[2016-12-04] MEDS ORDERED: METHADONE HCL 40 MG DISPERSABLE TABLET ONE (03:16)
[2016-12-04] MEDS: METHADONE 160 MG, METHADONE 20 MG PO SCH (06:16)
[2016-12-04] MEDS: RANITIDINE HCL 150 MG TABLET (FP) PO SCH ×2 (06:17→17:25)
[2016-12-04] MEDS: FERROUS SO4 325 MG TABLET (FP) PO SCH ×2 (07:49→17:20)
[2016-12-04] MEDS: ARTIFICIAL TEARS (POLYVINYL ALCOHOL 1.4%) OPTH DROPS OU SCH ×2 (10:30→21:47)
[2016-12-04] MEDS: NICOTINE 21 MG/24 HOURS TOPICAL PATCH TD SCH (10:31)
[2016-12-04] MEDS: PRENATAL VITAMINS W/ FOLIC ACID TABLET (FP) PO SCH (10:32)
[2016-12-04] MEDS: NAPROXEN 500 MG TABLET (FP) PO SCH ×2 (10:32→21:46)
[2016-12-04] MEDS: METHYL SALICYLATE/MENTHOL OINT 30 GM TUBE TP SCH ×2 (10:32→21:45)
[2016-12-04] MEDS: CYCLOBENZAPRINE HCL 10 MG TABLET (FP) PO SCH ×2 (10:32→21:46)
[2016-12-04] MEDS: QUEtiapine FUMARATE 50 MG TABLET PO SCH ×2 (10:32→21:45)
[2016-12-04] MEDS: THIAMINE HCL 100 MG TABLET (FP) PO SCH (21:45)
[2016-12-05] MEDS: MENTHOL/PHENOL 1 EACH UD MM PRN ×2 (04:41→10:16)
[2016-12-05] MEDS ORDERED: METHADONE HCL 40 MG DISPERSABLE TABLET ONE (05:39)
[2016-12-05] MEDS ORDERED: METHADONE HCL 10 MG TABLET ONE (05:39)
[2016-12-05] MEDS: RANITIDINE HCL 150 MG TABLET (FP) PO SCH ×2 (06:08→17:49)
[2016-12-05] MEDS ORDERED: METHADONE HCL 10 MG TABLET PO ONE (06:08)
[2016-12-05] MEDS ORDERED: PT OWN MED DRAWER 7, Y5N ONE ×2 (06:10→07:45)
[2016-12-05] MEDS: METHADONE 160 MG, METHADONE 20 MG PO SCH (06:42)
[2016-12-05] MEDS: FERROUS SO4 325 MG TABLET (FP) PO SCH ×2 (07:50→17:49)
[2016-12-05] MEDS: NICOTINE 21 MG/24 HOURS TOPICAL PATCH TD SCH (10:10)
[2016-12-05] MEDS: PRENATAL VITAMINS W/ FOLIC ACID TABLET (FP) PO SCH (10:12)
[2016-12-05] MEDS: NAPROXEN 500 MG TABLET (FP) PO SCH ×2 (10:12→21:56)
[2016-12-05] MEDS: CYCLOBENZAPRINE HCL 10 MG TABLET (FP) PO SCH ×2 (10:12→21:56)
[2016-12-05] MEDS: ARTIFICIAL TEARS (POLYVINYL ALCOHOL 1.4%) OPTH DROPS OU SCH ×2 (10:13→21:57)
[2016-12-05] MEDS: QUEtiapine FUMARATE 50 MG TABLET PO SCH ×2 (10:13→21:56)
[2016-12-05] MEDS: METHYL SALICYLATE/MENTHOL OINT 30 GM TUBE TP SCH ×2 (10:13→21:57)
[2016-12-05] MEDS: hydrOXYzine PAMOATE 50 MG CAPSULE (FP) PO PRN (17:49)
[2016-12-05] MEDS: THIAMINE HCL 100 MG TABLET (FP) PO SCH (21:56)
[2016-12-05] MEDS: diphenhydrAMINE HCL 50 MG CAPSULE PO PRN (21:56)
[2016-12-06] MEDS ORDERED: METHADONE HCL 40 MG DISPERSABLE TABLET ONE (03:16)
[2016-12-06] MEDS ORDERED: METHADONE HCL 10 MG TABLET ONE (03:16)
[2016-12-06] MEDS ORDERED: METHADONE HCL 10 MG TABLET PO SCH (06:00)
[2016-12-06] MEDS: METHADONE 160 MG, METHADONE 20 MG PO SCH (06:15)
[2016-12-06] MEDS: RANITIDINE HCL 150 MG TABLET (FP) PO SCH ×2 (06:16→17:16)
[2016-12-06] MEDS: hydrOXYzine PAMOATE 50 MG CAPSULE (FP) PO PRN ×4 (06:17→21:49)
[2016-12-06] MEDS: FERROUS SO4 325 MG TABLET (FP) PO SCH ×2 (07:19→17:16)
[2016-12-06] MEDS: ARTIFICIAL TEARS (POLYVINYL ALCOHOL 1.4%) OPTH DROPS OU SCH ×2 (10:29→21:47)
[2016-12-06] MEDS: METHYL SALICYLATE/MENTHOL OINT 30 GM TUBE TP SCH ×2 (10:30→21:47)
[2016-12-06] MEDS: QUEtiapine FUMARATE 50 MG TABLET PO SCH ×2 (10:30→21:49)
[2016-12-06] MEDS: NAPROXEN 500 MG TABLET (FP) PO SCH ×2 (10:30→21:49)
[2016-12-06] MEDS: NICOTINE 21 MG/24 HOURS TOPICAL PATCH TD SCH (10:30)
[2016-12-06] MEDS: PRENATAL VITAMINS W/ FOLIC ACID TABLET (FP) PO SCH (10:30)
[2016-12-06] MEDS: CYCLOBENZAPRINE HCL 10 MG TABLET (FP) PO SCH ×2 (10:30→21:49)
[2016-12-06] MEDS ORDERED: PT OWN MED DRAWER 7, Y5N ONE (20:16)
[2016-12-06] MEDS: THIAMINE HCL 100 MG TABLET (FP) PO SCH (21:49)
[2016-12-07] MEDS ORDERED: METHADONE HCL 40 MG DISPERSABLE TABLET ONE (03:15)
[2016-12-07] MEDS ORDERED: METHADONE HCL 10 MG TABLET ONE (03:15)
[2016-12-07] MEDS: METHADONE 160 MG, METHADONE 20 MG PO SCH (06:11)
[2016-12-07] MEDS: RANITIDINE HCL 150 MG TABLET (FP) PO SCH ×2 (06:13→17:31)
[2016-12-07] MEDS: hydrOXYzine PAMOATE 50 MG CAPSULE (FP) PO PRN ×2 (06:13→17:32)
[2016-12-07] MEDS: FERROUS SO4 325 MG TABLET (FP) PO SCH ×2 (08:15→17:31)
[2016-12-07] MEDS: ARTIFICIAL TEARS (POLYVINYL ALCOHOL 1.4%) OPTH DROPS OU SCH ×2 (10:07→21:39)
[2016-12-07] MEDS: NAPROXEN 500 MG TABLET (FP) PO SCH ×2 (10:07→21:39)
[2016-12-07] MEDS: CYCLOBENZAPRINE HCL 10 MG TABLET (FP) PO SCH ×2 (10:08→21:39)
[2016-12-07] MEDS: PRENATAL VITAMINS W/ FOLIC ACID TABLET (FP) PO SCH (10:08)
[2016-12-07] MEDS: NICOTINE 21 MG/24 HOURS TOPICAL PATCH TD SCH (10:08)
[2016-12-07] MEDS: QUEtiapine FUMARATE 50 MG TABLET PO SCH ×2 (10:10→21:39)
[2016-12-07] MEDS: METHYL SALICYLATE/MENTHOL OINT 30 GM TUBE TP SCH ×2 (10:11→21:40)
[2016-12-07] MEDS: MENTHOL/PHENOL 1 EACH UD MM PRN (17:33)
[2016-12-07] MEDS ORDERED: PT OWN MED DRAWER 7, Y5N ONE (20:29)
[2016-12-07] MEDS: THIAMINE HCL 100 MG TABLET (FP) PO SCH (21:39)
[2016-12-08] MEDS ORDERED: METHADONE HCL 40 MG DISPERSABLE TABLET ONE (03:16)
[2016-12-08] MEDS ORDERED: METHADONE HCL 10 MG TABLET ONE (03:16)
[2016-12-08] MEDS: METHADONE 160 MG, METHADONE 20 MG PO SCH (06:17)
[2016-12-08] MEDS: RANITIDINE HCL 150 MG TABLET (FP) PO SCH ×2 (06:18→17:55)
[2016-12-08] MEDS: hydrOXYzine PAMOATE 50 MG CAPSULE (FP) PO PRN ×3 (06:19→17:57)
[2016-12-08] MEDS: FERROUS SO4 325 MG TABLET (FP) PO SCH ×2 (07:51→17:55)
[2016-12-08] MEDS: ARTIFICIAL TEARS (POLYVINYL ALCOHOL 1.4%) OPTH DROPS OU SCH ×2 (10:42→22:08)
[2016-12-08] MEDS: METHYL SALICYLATE/MENTHOL OINT 30 GM TUBE TP SCH ×2 (10:42→22:08)
[2016-12-08] MEDS: PRENATAL VITAMINS W/ FOLIC ACID TABLET (FP) PO SCH (10:43)
[2016-12-08] MEDS: QUEtiapine FUMARATE 50 MG TABLET PO SCH ×2 (10:43→22:09)
[2016-12-08] MEDS: CYCLOBENZAPRINE HCL 10 MG TABLET (FP) PO SCH ×2 (10:43→22:08)
[2016-12-08] MEDS: NICOTINE 21 MG/24 HOURS TOPICAL PATCH TD SCH (10:43)
[2016-12-08] MEDS: NAPROXEN 500 MG TABLET (FP) PO SCH ×2 (10:43→22:08)
[2016-12-08] MEDS ORDERED: MINERAL OIL/PETROLAT/WATER TOPICAL CREAM 454 GM JAR TP PRN (14:43)
[2016-12-08] MEDS: THIAMINE HCL 100 MG TABLET (FP) PO SCH (22:08)
[2016-12-09] MEDS ORDERED: METHADONE HCL 10 MG TABLET ONE (05:56)
[2016-12-09] MEDS ORDERED: METHADONE HCL 40 MG DISPERSABLE TABLET ONE (05:56)
[2016-12-09] MEDS: RANITIDINE HCL 150 MG TABLET (FP) PO SCH ×2 (06:17→17:56)
[2016-12-09] MEDS: METHADONE 160 MG, METHADONE 20 MG PO SCH (06:18)
[2016-12-09] MEDS: MENTHOL/PHENOL 1 EACH UD MM PRN (06:21)
[2016-12-09] MEDS: FERROUS SO4 325 MG TABLET (FP) PO SCH ×2 (07:37→17:56)
[2016-12-09] MEDS ORDERED: PT OWN MED DRAWER 7, Y5N ONE ×3 (08:17→22:04)
[2016-12-09] MEDS: NICOTINE 21 MG/24 HOURS TOPICAL PATCH TD SCH (10:48)
[2016-12-09] MEDS: ARTIFICIAL TEARS (POLYVINYL ALCOHOL 1.4%) OPTH DROPS OU SCH ×2 (10:48→21:56)
[2016-12-09] MEDS: PRENATAL VITAMINS W/ FOLIC ACID TABLET (FP) PO SCH (10:48)
[2016-12-09] MEDS: QUEtiapine FUMARATE 50 MG TABLET PO SCH ×2 (10:49→21:57)
[2016-12-09] MEDS: NAPROXEN 500 MG TABLET (FP) PO SCH ×2 (10:49→21:56)
[2016-12-09] MEDS: CYCLOBENZAPRINE HCL 10 MG TABLET (FP) PO SCH ×2 (10:49→21:57)
[2016-12-09] MEDS: METHYL SALICYLATE/MENTHOL OINT 30 GM TUBE TP SCH ×2 (10:50→21:56)
[2016-12-09] MEDS: hydrOXYzine PAMOATE 50 MG CAPSULE (FP) PO PRN ×2 (10:56→17:57)
[2016-12-09] MEDS: LIDOCAINE 5% TOPICAL PATCH TP SCH (14:17)
[2016-12-09] MEDS: diphenhydrAMINE HCL 50 MG CAPSULE PO PRN (21:56)
[2016-12-09] MEDS: THIAMINE HCL 100 MG TABLET (FP) PO SCH (21:57)
[2016-12-09] MEDS: MAG HYDROX/AL HYDROX/SIMETH 30 ML UNIT-DOSE CUP PO PRN (23:22)
[2016-12-10] MEDS ORDERED: METHADONE HCL 10 MG TABLET ONE (03:08)
[2016-12-10] MEDS: METHADONE 160 MG, METHADONE 20 MG PO SCH (06:33)
[2016-12-10] MEDS: RANITIDINE HCL 150 MG TABLET (FP) PO SCH ×2 (06:35→17:45)
[2016-12-10] MEDS: hydrOXYzine PAMOATE 50 MG CAPSULE (FP) PO PRN ×3 (06:35→21:57)
[2016-12-10] MEDS: FERROUS SO4 325 MG TABLET (FP) PO SCH ×2 (07:43→17:45)
[2016-12-10] MEDS: LIDOCAINE 5% TOPICAL PATCH TP SCH (10:56)
[2016-12-10] MEDS: ARTIFICIAL TEARS (POLYVINYL ALCOHOL 1.4%) OPTH DROPS OU SCH ×2 (10:56→21:55)
[2016-12-10] MEDS: NICOTINE 21 MG/24 HOURS TOPICAL PATCH TD SCH (10:56)
[2016-12-10] MEDS: CYCLOBENZAPRINE HCL 10 MG TABLET (FP) PO SCH ×2 (10:57→21:55)
[2016-12-10] MEDS: METHYL SALICYLATE/MENTHOL OINT 30 GM TUBE TP SCH ×2 (10:57→21:55)
[2016-12-10] MEDS: NAPROXEN 500 MG TABLET (FP) PO SCH ×2 (10:57→21:55)
[2016-12-10] MEDS: PRENATAL VITAMINS W/ FOLIC ACID TABLET (FP) PO SCH (10:58)
[2016-12-10] MEDS: QUEtiapine FUMARATE 50 MG TABLET PO SCH ×2 (10:59→21:55)
[2016-12-10] MEDS: THIAMINE HCL 100 MG TABLET (FP) PO SCH (21:55)
[2016-12-11] MEDS ORDERED: METHADONE HCL 40 MG DISPERSABLE TABLET ONE (03:16)
[2016-12-11] MEDS: METHADONE 160 MG, METHADONE 20 MG PO SCH (06:15)
[2016-12-11] MEDS: RANITIDINE HCL 150 MG TABLET (FP) PO SCH ×2 (06:16→17:06)
[2016-12-11] MEDS: hydrOXYzine PAMOATE 50 MG CAPSULE (FP) PO PRN ×2 (06:16→17:06)
[2016-12-11] MEDS: FERROUS SO4 325 MG TABLET (FP) PO SCH ×2 (07:20→17:06)
[2016-12-11] MEDS ORDERED: PT OWN MED DRAWER 7, Y5N ONE ×2 (08:50→20:23)
[2016-12-11] MEDS: ARTIFICIAL TEARS (POLYVINYL ALCOHOL 1.4%) OPTH DROPS OU SCH ×2 (10:54→21:02)
[2016-12-11] MEDS: PRENATAL VITAMINS W/ FOLIC ACID TABLET (FP) PO SCH (10:54)
[2016-12-11] MEDS: CYCLOBENZAPRINE HCL 10 MG TABLET (FP) PO SCH ×2 (10:54→21:03)
[2016-12-11] MEDS: METHYL SALICYLATE/MENTHOL OINT 30 GM TUBE TP SCH ×2 (10:54→21:03)
[2016-12-11] MEDS: QUEtiapine FUMARATE 50 MG TABLET PO SCH ×2 (10:55→21:03)
[2016-12-11] MEDS: NAPROXEN 500 MG TABLET (FP) PO SCH ×2 (10:55→21:02)
[2016-12-11] MEDS: NICOTINE 21 MG/24 HOURS TOPICAL PATCH TD SCH (10:55)
[2016-12-11] MEDS: LIDOCAINE 5% TOPICAL PATCH TP SCH (10:56)
[2016-12-11] MEDS: THIAMINE HCL 100 MG TABLET (FP) PO SCH (21:03)
[2016-12-12] MEDS: hydrOXYzine PAMOATE 50 MG CAPSULE (FP) PO PRN ×5 (01:45→21:53)
[2016-12-12] MEDS ORDERED: METHADONE HCL 40 MG DISPERSABLE TABLET ONE (03:24)
[2016-12-12] MEDS ORDERED: METHADONE HCL 10 MG TABLET ONE (03:24)
[2016-12-12] MEDS: METHADONE 160 MG, METHADONE 20 MG PO SCH (06:11)
[2016-12-12] MEDS: RANITIDINE HCL 150 MG TABLET (FP) PO SCH ×2 (06:12→17:39)
[2016-12-12] MEDS: FERROUS SO4 325 MG TABLET (FP) PO SCH ×2 (07:39→17:39)
[2016-12-12] MEDS ORDERED: PT OWN MED DRAWER 7, Y5N ONE ×3 (08:57→20:07)
[2016-12-12] MEDS: NICOTINE 21 MG/24 HOURS TOPICAL PATCH TD SCH (10:38)
[2016-12-12] MEDS: NAPROXEN 500 MG TABLET (FP) PO SCH ×2 (10:39→21:51)
[2016-12-12] MEDS: PRENATAL VITAMINS W/ FOLIC ACID TABLET (FP) PO SCH (10:39)
[2016-12-12] MEDS: CYCLOBENZAPRINE HCL 10 MG TABLET (FP) PO SCH ×2 (10:39→21:51)
[2016-12-12] MEDS: METHYL SALICYLATE/MENTHOL OINT 30 GM TUBE TP SCH ×2 (10:39→21:54)
[2016-12-12] MEDS: ARTIFICIAL TEARS (POLYVINYL ALCOHOL 1.4%) OPTH DROPS OU SCH ×2 (10:39→21:50)
[2016-12-12] MEDS: QUEtiapine FUMARATE 50 MG TABLET PO SCH (10:39)
[2016-12-12] MEDS: LIDOCAINE 5% TOPICAL PATCH TP SCH (10:40)
[2016-12-12] MEDS: QUEtiapine FUMARATE 100 MG TABLET (FP) PO SCH (21:51)
[2016-12-12] MEDS: THIAMINE HCL 100 MG TABLET (FP) PO SCH (21:51)
[2016-12-13] MEDS ORDERED: METHADONE HCL 10 MG TABLET ONE (05:56)
[2016-12-13] MEDS ORDERED: METHADONE HCL 40 MG DISPERSABLE TABLET ONE (05:57)
[2016-12-13] MEDS: METHADONE 160 MG, METHADONE 20 MG PO SCH (06:26)
[2016-12-13] MEDS: RANITIDINE HCL 150 MG TABLET (FP) PO SCH ×2 (06:26→17:48)
[2016-12-13] MEDS: hydrOXYzine PAMOATE 50 MG CAPSULE (FP) PO PRN ×3 (06:26→17:50)
[2016-12-13] MEDS: FERROUS SO4 325 MG TABLET (FP) PO SCH ×2 (07:07→17:48)
[2016-12-13] MEDS: NICOTINE 21 MG/24 HOURS TOPICAL PATCH TD SCH (10:33)
[2016-12-13] MEDS: LIDOCAINE 5% TOPICAL PATCH TP SCH (10:33)
[2016-12-13] MEDS: METHYL SALICYLATE/MENTHOL OINT 30 GM TUBE TP SCH ×2 (10:34→22:11)
[2016-12-13] MEDS: PRENATAL VITAMINS W/ FOLIC ACID TABLET (FP) PO SCH (10:34)
[2016-12-13] MEDS: CYCLOBENZAPRINE HCL 10 MG TABLET (FP) PO SCH ×2 (10:34→21:15)
[2016-12-13] MEDS: NAPROXEN 500 MG TABLET (FP) PO SCH ×2 (10:34→21:15)
[2016-12-13] MEDS: ARTIFICIAL TEARS (POLYVINYL ALCOHOL 1.4%) OPTH DROPS OU SCH ×2 (10:34→22:11)
[2016-12-13] MEDS: QUEtiapine FUMARATE 50 MG TABLET PO SCH (10:34)
[2016-12-13] MEDS: THIAMINE HCL 100 MG TABLET (FP) PO SCH (21:15)
[2016-12-13] MEDS: QUEtiapine FUMARATE 100 MG TABLET (FP) PO SCH (21:15)
[2016-12-13] MEDS: diphenhydrAMINE HCL 50 MG CAPSULE PO PRN (21:18)
[2016-12-13] MEDS ORDERED: PT OWN MED DRAWER 7, Y5N ONE (22:11)
[2016-12-14] MEDS ORDERED: METHADONE HCL 40 MG DISPERSABLE TABLET ONE (06:03)
[2016-12-14] MEDS ORDERED: METHADONE HCL 10 MG TABLET ONE (06:03)
[2016-12-14] MEDS: RANITIDINE HCL 150 MG TABLET (FP) PO SCH ×2 (06:19→17:44)
[2016-12-14] MEDS: METHADONE 160 MG, METHADONE 20 MG PO SCH (06:20)
[2016-12-14] MEDS: hydrOXYzine PAMOATE 50 MG CAPSULE (FP) PO PRN ×4 (06:21→21:55)
[2016-12-14] MEDS: MENTHOL/PHENOL 1 EACH UD MM PRN (06:28)
[2016-12-14] MEDS: FERROUS SO4 325 MG TABLET (FP) PO SCH ×2 (07:04→17:42)
[2016-12-14] MEDS: METHYL SALICYLATE/MENTHOL OINT 30 GM TUBE TP SCH ×2 (10:38→21:53)
[2016-12-14] MEDS: NICOTINE 21 MG/24 HOURS TOPICAL PATCH TD SCH (10:38)
[2016-12-14] MEDS: LIDOCAINE 5% TOPICAL PATCH TP SCH (10:38)
[2016-12-14] MEDS: PRENATAL VITAMINS W/ FOLIC ACID TABLET (FP) PO SCH (10:40)
[2016-12-14] MEDS: NAPROXEN 500 MG TABLET (FP) PO SCH ×2 (10:40→21:53)
[2016-12-14] MEDS: QUEtiapine FUMARATE 50 MG TABLET PO SCH (10:40)
[2016-12-14] MEDS: CYCLOBENZAPRINE HCL 10 MG TABLET (FP) PO SCH ×2 (10:40→21:53)
[2016-12-14] MEDS: ARTIFICIAL TEARS (POLYVINYL ALCOHOL 1.4%) OPTH DROPS OU SCH ×2 (10:40→22:01)
[2016-12-14] MEDS: THIAMINE HCL 100 MG TABLET (FP) PO SCH (21:53)
[2016-12-14] MEDS: QUEtiapine FUMARATE 100 MG TABLET (FP) PO SCH (21:53)
[2016-12-15] MEDS ORDERED: METHADONE HCL 10 MG TABLET ONE (06:03)
[2016-12-15] MEDS ORDERED: METHADONE HCL 40 MG DISPERSABLE TABLET ONE (06:04)
[2016-12-15] MEDS: METHADONE 160 MG, METHADONE 20 MG PO SCH (06:21)
[2016-12-15] MEDS: hydrOXYzine PAMOATE 50 MG CAPSULE (FP) PO PRN ×4 (06:24→21:42)
[2016-12-15] MEDS: FERROUS SO4 325 MG TABLET (FP) PO SCH ×2 (07:33→17:09)
[2016-12-15] MEDS: RANITIDINE HCL 150 MG TABLET (FP) PO SCH ×2 (07:33→17:09)
[2016-12-15] MEDS ORDERED: PT OWN MED DRAWER 7, Y5N ONE ×3 (08:00→20:15)
[2016-12-15] MEDS: NICOTINE 21 MG/24 HOURS TOPICAL PATCH TD SCH (10:48)
[2016-12-15] MEDS: LIDOCAINE 5% TOPICAL PATCH TP SCH (10:48)
[2016-12-15] MEDS: PRENATAL VITAMINS W/ FOLIC ACID TABLET (FP) PO SCH (10:49)
[2016-12-15] MEDS: NAPROXEN 500 MG TABLET (FP) PO SCH ×2 (10:49→21:41)
[2016-12-15] MEDS: ARTIFICIAL TEARS (POLYVINYL ALCOHOL 1.4%) OPTH DROPS OU SCH ×2 (10:49→21:39)
[2016-12-15] MEDS: QUEtiapine FUMARATE 50 MG TABLET PO SCH (10:49)
[2016-12-15] MEDS: CYCLOBENZAPRINE HCL 10 MG TABLET (FP) PO SCH ×2 (10:49→21:39)
[2016-12-15] MEDS: METHYL SALICYLATE/MENTHOL OINT 30 GM TUBE TP SCH ×2 (10:50→21:39)
[2016-12-15] MEDS: THIAMINE HCL 100 MG TABLET (FP) PO SCH (21:39)
[2016-12-15] MEDS: QUEtiapine FUMARATE 100 MG TABLET (FP) PO SCH (21:39)
[2016-12-16] MEDS ORDERED: METHADONE HCL 40 MG DISPERSABLE TABLET ONE (05:41)
[2016-12-16] MEDS ORDERED: METHADONE HCL 10 MG TABLET ONE (05:41)
[2016-12-16] MEDS: RANITIDINE HCL 150 MG TABLET (FP) PO SCH ×2 (06:04→17:48)
[2016-12-16] MEDS: METHADONE 160 MG, METHADONE 20 MG PO SCH (06:05)
[2016-12-16] MEDS: hydrOXYzine PAMOATE 50 MG CAPSULE (FP) PO PRN ×4 (06:06→21:53)
[2016-12-16] MEDS: FERROUS SO4 325 MG TABLET (FP) PO SCH ×2 (07:08→17:48)
[2016-12-16] MEDS: NICOTINE 21 MG/24 HOURS TOPICAL PATCH TD SCH (10:47)
[2016-12-16] MEDS: ARTIFICIAL TEARS (POLYVINYL ALCOHOL 1.4%) OPTH DROPS OU SCH ×2 (10:47→21:52)
[2016-12-16] MEDS: CYCLOBENZAPRINE HCL 10 MG TABLET (FP) PO SCH ×2 (10:48→21:51)
[2016-12-16] MEDS: METHYL SALICYLATE/MENTHOL OINT 30 GM TUBE TP SCH ×2 (10:48→21:52)
[2016-12-16] MEDS: QUEtiapine FUMARATE 50 MG TABLET PO SCH (10:48)
[2016-12-16] MEDS: PRENATAL VITAMINS W/ FOLIC ACID TABLET (FP) PO SCH (10:48)
[2016-12-16] MEDS: NAPROXEN 500 MG TABLET (FP) PO SCH ×2 (10:48→21:51)
[2016-12-16] MEDS: LIDOCAINE 5% TOPICAL PATCH TP SCH (10:48)
[2016-12-16] MEDS ORDERED: PT OWN MED DRAWER 7, Y5N ONE (20:26)
[2016-12-16] MEDS: QUEtiapine FUMARATE 100 MG TABLET (FP) PO SCH (21:51)
[2016-12-16] MEDS: THIAMINE HCL 100 MG TABLET (FP) PO SCH (21:51)
[2016-12-17] MEDS ORDERED: METHADONE HCL 10 MG TABLET ONE (03:17)
[2016-12-17] MEDS ORDERED: METHADONE HCL 40 MG DISPERSABLE TABLET ONE (03:17)
[2016-12-17] MEDS: METHADONE 160 MG, METHADONE 20 MG PO SCH (06:12)
[2016-12-17] MEDS: RANITIDINE HCL 150 MG TABLET (FP) PO SCH ×2 (06:13→19:05)
[2016-12-17] MEDS: hydrOXYzine PAMOATE 50 MG CAPSULE (FP) PO PRN ×3 (06:13→15:55)
[2016-12-17] MEDS: FERROUS SO4 325 MG TABLET (FP) PO SCH ×2 (07:47→17:35)
[2016-12-17] MEDS ORDERED: PT OWN MED DRAWER 7, Y5N ONE (09:06)
[2016-12-17] MEDS: LIDOCAINE 5% TOPICAL PATCH TP SCH (11:18)
[2016-12-17] MEDS: QUEtiapine FUMARATE 50 MG TABLET PO SCH (11:18)
[2016-12-17] MEDS: ARTIFICIAL TEARS (POLYVINYL ALCOHOL 1.4%) OPTH DROPS OU SCH ×2 (11:18→21:51)
[2016-12-17] MEDS: NAPROXEN 500 MG TABLET (FP) PO SCH ×2 (11:18→21:50)
[2016-12-17] MEDS: CYCLOBENZAPRINE HCL 10 MG TABLET (FP) PO SCH ×2 (11:18→21:50)
[2016-12-17] MEDS: NICOTINE 21 MG/24 HOURS TOPICAL PATCH TD SCH (11:19)
[2016-12-17] MEDS: METHYL SALICYLATE/MENTHOL OINT 30 GM TUBE TP SCH ×2 (11:19→21:52)
[2016-12-17] MEDS: PRENATAL VITAMINS W/ FOLIC ACID TABLET (FP) PO SCH (11:24)
[2016-12-17] MEDS: QUEtiapine FUMARATE 100 MG TABLET (FP) PO SCH (21:50)
[2016-12-17] MEDS: diphenhydrAMINE HCL 50 MG CAPSULE PO PRN (21:50)
[2016-12-17] MEDS: THIAMINE HCL 100 MG TABLET (FP) PO SCH (21:50)
[2016-12-18] MEDS ORDERED: METHADONE HCL 40 MG DISPERSABLE TABLET ONE (03:20)
[2016-12-18] MEDS ORDERED: METHADONE HCL 10 MG TABLET ONE (03:20)
[2016-12-18] MEDS: METHADONE 160 MG, METHADONE 20 MG PO SCH (06:15)
[2016-12-18] MEDS: hydrOXYzine PAMOATE 50 MG CAPSULE (FP) PO PRN ×3 (06:17→17:21)
[2016-12-18] MEDS: RANITIDINE HCL 150 MG TABLET (FP) PO SCH ×2 (06:18→17:21)
[2016-12-18] MEDS: P-EPHED 60MG/TRIPROLIDI 2.5MG TABLET PO PRN (06:20)
[2016-12-18] MEDS: FERROUS SO4 325 MG TABLET (FP) PO SCH ×2 (07:49→17:21)
[2016-12-18] MEDS ORDERED: PT OWN MED DRAWER 7, Y5N ONE (08:49)
[2016-12-18] MEDS: CYCLOBENZAPRINE HCL 10 MG TABLET (FP) PO SCH ×2 (10:50→21:49)
[2016-12-18] MEDS: PRENATAL VITAMINS W/ FOLIC ACID TABLET (FP) PO SCH (10:50)
[2016-12-18] MEDS: ARTIFICIAL TEARS (POLYVINYL ALCOHOL 1.4%) OPTH DROPS OU SCH ×2 (10:51→21:51)
[2016-12-18] MEDS: NICOTINE 21 MG/24 HOURS TOPICAL PATCH TD SCH (10:52)
[2016-12-18] MEDS: LIDOCAINE 5% TOPICAL PATCH TP SCH (10:52)
[2016-12-18] MEDS: NAPROXEN 500 MG TABLET (FP) PO SCH ×2 (10:52→21:49)
[2016-12-18] MEDS: METHYL SALICYLATE/MENTHOL OINT 30 GM TUBE TP SCH ×2 (10:52→21:51)
[2016-12-18] MEDS: QUEtiapine FUMARATE 50 MG TABLET PO SCH (10:53)
[2016-12-18] MEDS: QUEtiapine FUMARATE 100 MG TABLET (FP) PO SCH (21:49)
[2016-12-18] MEDS: THIAMINE HCL 100 MG TABLET (FP) PO SCH (21:49)
[2016-12-18] MEDS: diphenhydrAMINE HCL 50 MG CAPSULE PO PRN (21:50)
[2016-12-19] MEDS ORDERED: METHADONE HCL 10 MG TABLET ONE (06:04)
[2016-12-19] MEDS ORDERED: METHADONE HCL 40 MG DISPERSABLE TABLET ONE (06:05)
[2016-12-19] MEDS: METHADONE 160 MG, METHADONE 20 MG PO SCH (06:20)
[2016-12-19] MEDS: hydrOXYzine PAMOATE 50 MG CAPSULE (FP) PO PRN ×3 (06:22→17:46)
[2016-12-19] MEDS: RANITIDINE HCL 150 MG TABLET (FP) PO SCH ×2 (08:36→17:45)
[2016-12-19] MEDS: FERROUS SO4 325 MG TABLET (FP) PO SCH ×2 (08:36→17:45)
[2016-12-19] MEDS ORDERED: PT OWN MED DRAWER 7, Y5N ONE (08:49)
[2016-12-19] MEDS: PRENATAL VITAMINS W/ FOLIC ACID TABLET (FP) PO SCH (11:04)
[2016-12-19] MEDS: QUEtiapine FUMARATE 50 MG TABLET PO SCH (11:05)
[2016-12-19] MEDS: CYCLOBENZAPRINE HCL 10 MG TABLET (FP) PO SCH ×2 (11:05→21:56)
[2016-12-19] MEDS: LIDOCAINE 5% TOPICAL PATCH TP SCH (11:05)
[2016-12-19] MEDS: ARTIFICIAL TEARS (POLYVINYL ALCOHOL 1.4%) OPTH DROPS OU SCH ×2 (11:05→21:58)
[2016-12-19] MEDS: NAPROXEN 500 MG TABLET (FP) PO SCH ×2 (11:05→21:56)
[2016-12-19] MEDS: NICOTINE 21 MG/24 HOURS TOPICAL PATCH TD SCH (11:05)
[2016-12-19] MEDS: METHYL SALICYLATE/MENTHOL OINT 30 GM TUBE TP SCH ×2 (11:06→21:57)
[2016-12-19] MEDS: THIAMINE HCL 100 MG TABLET (FP) PO SCH (21:56)
[2016-12-19] MEDS: QUEtiapine FUMARATE 100 MG TABLET (FP) PO SCH (21:56)
[2016-12-19] MEDS: diphenhydrAMINE HCL 50 MG CAPSULE PO PRN (21:57)
[2016-12-20] MEDS ORDERED: METHADONE HCL 10 MG TABLET ONE (06:03)
[2016-12-20] MEDS ORDERED: METHADONE HCL 40 MG DISPERSABLE TABLET ONE (06:03)
[2016-12-20] MEDS: METHADONE 160 MG, METHADONE 20 MG PO SCH (06:25)
[2016-12-20] MEDS: hydrOXYzine PAMOATE 50 MG CAPSULE (FP) PO PRN ×3 (06:26→16:55)
[2016-12-20] MEDS: RANITIDINE HCL 150 MG TABLET (FP) PO SCH ×2 (06:26→17:49)
[2016-12-20] MEDS: FERROUS SO4 325 MG TABLET (FP) PO SCH ×2 (07:38→17:49)
[2016-12-20] MEDS: ARTIFICIAL TEARS (POLYVINYL ALCOHOL 1.4%) OPTH DROPS OU SCH ×2 (10:21→21:39)
[2016-12-20] MEDS: QUEtiapine FUMARATE 50 MG TABLET PO SCH (10:21)
[2016-12-20] MEDS: CYCLOBENZAPRINE HCL 10 MG TABLET (FP) PO SCH ×2 (10:21→21:39)
[2016-12-20] MEDS: PRENATAL VITAMINS W/ FOLIC ACID TABLET (FP) PO SCH (10:21)
[2016-12-20] MEDS: NAPROXEN 500 MG TABLET (FP) PO SCH ×2 (10:21→21:39)
[2016-12-20] MEDS: LIDOCAINE 5% TOPICAL PATCH TP SCH (10:22)
[2016-12-20] MEDS: NICOTINE 21 MG/24 HOURS TOPICAL PATCH TD SCH (10:22)
[2016-12-20] MEDS: METHYL SALICYLATE/MENTHOL OINT 30 GM TUBE TP SCH ×2 (10:23→21:40)
[2016-12-20] MEDS: P-EPHED 60MG/TRIPROLIDI 2.5MG TABLET PO PRN (16:55)
[2016-12-20] MEDS ORDERED: PT OWN MED DRAWER 7, Y5N ONE (20:13)
[2016-12-20] MEDS: THIAMINE HCL 100 MG TABLET (FP) PO SCH (21:39)
[2016-12-20] MEDS: diphenhydrAMINE HCL 50 MG CAPSULE PO PRN (21:42)
[2016-12-20] MEDS: QUEtiapine FUMARATE 100 MG TABLET (FP) PO SCH (21:42)
[2016-12-21] MEDS ORDERED: METHADONE HCL 40 MG DISPERSABLE TABLET ONE (03:53)
[2016-12-21] MEDS ORDERED: METHADONE HCL 10 MG TABLET ONE (03:53)
[2016-12-21] MEDS: METHADONE 160 MG, METHADONE 20 MG PO SCH (06:17)
[2016-12-21] MEDS: hydrOXYzine PAMOATE 50 MG CAPSULE (FP) PO PRN ×4 (06:19→21:43)
[2016-12-21] MEDS: RANITIDINE HCL 150 MG TABLET (FP) PO SCH ×2 (06:19→17:12)
[2016-12-21] MEDS: MENTHOL/PHENOL 1 EACH UD MM PRN (06:21)
[2016-12-21] MEDS: FERROUS SO4 325 MG TABLET (FP) PO SCH ×2 (07:49→17:12)
[2016-12-21] MEDS: ARTIFICIAL TEARS (POLYVINYL ALCOHOL 1.4%) OPTH DROPS OU SCH ×2 (10:24→21:40)
[2016-12-21] MEDS: CYCLOBENZAPRINE HCL 10 MG TABLET (FP) PO SCH ×2 (10:24→21:40)
[2016-12-21] MEDS: NAPROXEN 500 MG TABLET (FP) PO SCH ×2 (10:24→21:41)
[2016-12-21] MEDS: PRENATAL VITAMINS W/ FOLIC ACID TABLET (FP) PO SCH (10:24)
[2016-12-21] MEDS: QUEtiapine FUMARATE 50 MG TABLET PO SCH (10:24)
[2016-12-21] MEDS: METHYL SALICYLATE/MENTHOL OINT 30 GM TUBE TP SCH ×2 (10:25→21:40)
[2016-12-21] MEDS: LIDOCAINE 5% TOPICAL PATCH TP SCH (10:25)
[2016-12-21] MEDS: NICOTINE 21 MG/24 HOURS TOPICAL PATCH TD SCH (10:25)
[2016-12-21] MEDS ORDERED: PT OWN MED DRAWER 7, Y5N ONE (20:18)
[2016-12-21] MEDS: THIAMINE HCL 100 MG TABLET (FP) PO SCH (21:40)
[2016-12-21] MEDS: QUEtiapine FUMARATE 100 MG TABLET (FP) PO SCH (21:40)
[2016-12-22] MEDS ORDERED: METHADONE HCL 40 MG DISPERSABLE TABLET ONE (03:17)
[2016-12-22] MEDS ORDERED: METHADONE HCL 10 MG TABLET ONE (03:17)
[2016-12-22] MEDS: METHADONE 160 MG, METHADONE 20 MG PO SCH (06:42)
[2016-12-22] MEDS: hydrOXYzine PAMOATE 50 MG CAPSULE (FP) PO PRN ×3 (06:43→17:15)
[2016-12-22] MEDS: RANITIDINE HCL 150 MG TABLET (FP) PO SCH ×2 (06:43→17:15)
[2016-12-22] MEDS: FERROUS SO4 325 MG TABLET (FP) PO SCH ×2 (07:50→17:12)
[2016-12-22] MEDS: NICOTINE 21 MG/24 HOURS TOPICAL PATCH TD SCH (10:27)
[2016-12-22] MEDS: LIDOCAINE 5% TOPICAL PATCH TP SCH (10:27)
[2016-12-22] MEDS: METHYL SALICYLATE/MENTHOL OINT 30 GM TUBE TP SCH ×2 (10:27→22:14)
[2016-12-22] MEDS: ARTIFICIAL TEARS (POLYVINYL ALCOHOL 1.4%) OPTH DROPS OU SCH ×2 (10:27→22:14)
[2016-12-22] MEDS: QUEtiapine FUMARATE 50 MG TABLET PO SCH (10:27)
[2016-12-22] MEDS: PRENATAL VITAMINS W/ FOLIC ACID TABLET (FP) PO SCH (10:27)
[2016-12-22] MEDS: NAPROXEN 500 MG TABLET (FP) PO SCH ×2 (10:27→21:56)
[2016-12-22] MEDS: CYCLOBENZAPRINE HCL 10 MG TABLET (FP) PO SCH ×2 (10:27→21:57)
[2016-12-22] MEDS ORDERED: PRENATAL VITAMINS W/ FOLIC ACID TABLET (FP) PO SCH (11:45)
[2016-12-22] MEDS: DOCUSATE SODIUM 100 MG CAPSULE (FP) PO SCH ×2 (14:14→22:14)
[2016-12-22] MEDS: MAG HYDROX/AL HYDROX/SIMETH 30 ML UNIT-DOSE CUP PO PRN (17:15)
[2016-12-22] MEDS: diphenhydrAMINE HCL 50 MG CAPSULE PO PRN (21:56)
[2016-12-22] MEDS: QUEtiapine FUMARATE 100 MG TABLET (FP) PO SCH (21:56)
[2016-12-22] MEDS: THIAMINE HCL 100 MG TABLET (FP) PO SCH (21:57)
[2016-12-23] MEDS ORDERED: METHADONE HCL 10 MG TABLET ONE (06:44)
[2016-12-23] MEDS ORDERED: METHADONE HCL 40 MG DISPERSABLE TABLET ONE (06:45)
[2016-12-23] MEDS: METHADONE 160 MG, METHADONE 20 MG PO SCH (07:12)
[2016-12-23] MEDS: RANITIDINE HCL 150 MG TABLET (FP) PO SCH ×2 (07:13→17:41)
[2016-12-23] MEDS: hydrOXYzine PAMOATE 50 MG CAPSULE (FP) PO PRN ×3 (07:15→18:24)
[2016-12-23] MEDS: FERROUS SO4 325 MG TABLET (FP) PO SCH ×3 (08:00→17:41)
[2016-12-23] MEDS: LIDOCAINE 5% TOPICAL PATCH TP SCH (10:33)
[2016-12-23] MEDS: NICOTINE 21 MG/24 HOURS TOPICAL PATCH TD SCH (10:34)
[2016-12-23] MEDS: CYCLOBENZAPRINE HCL 10 MG TABLET (FP) PO SCH ×2 (10:35→21:41)
[2016-12-23] MEDS: ARTIFICIAL TEARS (POLYVINYL ALCOHOL 1.4%) OPTH DROPS OU SCH ×2 (10:35→21:40)
[2016-12-23] MEDS: NAPROXEN 500 MG TABLET (FP) PO SCH ×2 (10:35→21:41)
[2016-12-23] MEDS: PRENATAL VITAMINS W/ FOLIC ACID TABLET (FP) PO SCH (10:35)
[2016-12-23] MEDS: QUEtiapine FUMARATE 50 MG TABLET PO SCH (10:35)
[2016-12-23] MEDS: METHYL SALICYLATE/MENTHOL OINT 30 GM TUBE TP SCH ×2 (10:36→21:42)
[2016-12-23] MEDS: DOCUSATE SODIUM 100 MG CAPSULE (FP) PO SCH ×2 (10:36→21:41)
[2016-12-23] MEDS ORDERED: PT OWN MED DRAWER 7, Y5N ONE (20:44)
[2016-12-23] MEDS: QUEtiapine FUMARATE 100 MG TABLET (FP) PO SCH (21:41)
[2016-12-23] MEDS: THIAMINE HCL 100 MG TABLET (FP) PO SCH (21:41)
[2016-12-23] MEDS: diphenhydrAMINE HCL 50 MG CAPSULE PO PRN (21:43)
[2016-12-24] MEDS ORDERED: METHADONE HCL 40 MG DISPERSABLE TABLET ONE (03:49)
[2016-12-24] MEDS ORDERED: METHADONE HCL 10 MG TABLET ONE (03:49)
[2016-12-24] MEDS: METHADONE 160 MG, METHADONE 20 MG PO SCH (07:15)
[2016-12-24] MEDS: FERROUS SO4 325 MG TABLET (FP) PO SCH ×2 (07:16→17:48)
[2016-12-24] MEDS: RANITIDINE HCL 150 MG TABLET (FP) PO SCH ×2 (07:16→17:47)
[2016-12-24] MEDS: hydrOXYzine PAMOATE 50 MG CAPSULE (FP) PO PRN ×4 (07:17→23:13)
[2016-12-24] MEDS ORDERED: PT OWN MED DRAWER 7, Y5N ONE ×2 (09:06→21:56)
[2016-12-24] MEDS: DOCUSATE SODIUM 100 MG CAPSULE (FP) PO SCH ×2 (10:38→21:56)
[2016-12-24] MEDS: ARTIFICIAL TEARS (POLYVINYL ALCOHOL 1.4%) OPTH DROPS OU SCH ×2 (10:38→21:56)
[2016-12-24] MEDS: PRENATAL VITAMINS W/ FOLIC ACID TABLET (FP) PO SCH (10:39)
[2016-12-24] MEDS: QUEtiapine FUMARATE 50 MG TABLET PO SCH (10:39)
[2016-12-24] MEDS: NAPROXEN 500 MG TABLET (FP) PO SCH ×2 (10:39→21:57)
[2016-12-24] MEDS: CYCLOBENZAPRINE HCL 10 MG TABLET (FP) PO SCH ×2 (10:39→21:57)
[2016-12-24] MEDS: LIDOCAINE 5% TOPICAL PATCH TP SCH (10:40)
[2016-12-24] MEDS: NICOTINE 21 MG/24 HOURS TOPICAL PATCH TD SCH (10:40)
[2016-12-24] MEDS: METHYL SALICYLATE/MENTHOL OINT 30 GM TUBE TP SCH ×2 (10:40→21:56)
[2016-12-24] MEDS: HYDROCORTISONE 2.5% TOPICAL CREAM 30 GM TUBE PR SCH (11:59)
[2016-12-24] MEDS: diphenhydrAMINE HCL 50 MG CAPSULE PO PRN (21:57)
[2016-12-24] MEDS: QUEtiapine FUMARATE 100 MG TABLET (FP) PO SCH (21:57)
[2016-12-24] MEDS: MENTHOL/PHENOL 1 EACH UD MM PRN (21:57)
[2016-12-24] MEDS: THIAMINE HCL 100 MG TABLET (FP) PO SCH (21:57)
[2016-12-25] MEDS ORDERED: METHADONE HCL 40 MG DISPERSABLE TABLET ONE (03:28)
[2016-12-25] MEDS ORDERED: METHADONE HCL 10 MG TABLET ONE (03:28)
[2016-12-25] MEDS: METHADONE 160 MG, METHADONE 20 MG PO SCH (06:50)
[2016-12-25] MEDS: RANITIDINE HCL 150 MG TABLET (FP) PO SCH ×2 (06:51→17:47)
[2016-12-25] MEDS: hydrOXYzine PAMOATE 50 MG CAPSULE (FP) PO PRN ×4 (06:51→20:08)
[2016-12-25] MEDS: FERROUS SO4 325 MG TABLET (FP) PO SCH ×2 (07:33→17:47)
[2016-12-25] MEDS: DOCUSATE SODIUM 100 MG CAPSULE (FP) PO SCH ×2 (10:48→21:27)
[2016-12-25] MEDS: NAPROXEN 500 MG TABLET (FP) PO SCH ×2 (10:48→21:26)
[2016-12-25] MEDS: QUEtiapine FUMARATE 50 MG TABLET PO SCH (10:48)
[2016-12-25] MEDS: NICOTINE 21 MG/24 HOURS TOPICAL PATCH TD SCH (10:48)
[2016-12-25] MEDS: PRENATAL VITAMINS W/ FOLIC ACID TABLET (FP) PO SCH (10:48)
[2016-12-25] MEDS: CYCLOBENZAPRINE HCL 10 MG TABLET (FP) PO SCH ×2 (10:48→21:26)
[2016-12-25] MEDS: LIDOCAINE 5% TOPICAL PATCH TP SCH (10:49)
[2016-12-25] MEDS: METHYL SALICYLATE/MENTHOL OINT 30 GM TUBE TP SCH ×2 (10:51→21:27)
[2016-12-25] MEDS: ARTIFICIAL TEARS (POLYVINYL ALCOHOL 1.4%) OPTH DROPS OU SCH ×2 (10:51→21:27)
[2016-12-25] MEDS: HYDROCORTISONE 2.5% TOPICAL CREAM 30 GM TUBE PR SCH (10:51)
[2016-12-25] MEDS ORDERED: PT OWN MED DRAWER 7, Y5N ONE ×2 (10:52→19:56)
[2016-12-25] MEDS: QUEtiapine FUMARATE 100 MG TABLET (FP) PO SCH (21:26)
[2016-12-25] MEDS: THIAMINE HCL 100 MG TABLET (FP) PO SCH (21:26)
[2016-12-25] MEDS: diphenhydrAMINE HCL 50 MG CAPSULE PO PRN (21:27)
[2016-12-26] MEDS: hydrOXYzine PAMOATE 50 MG CAPSULE (FP) PO PRN ×3 (01:53→09:46)
[2016-12-26] MEDS ORDERED: METHADONE HCL 40 MG DISPERSABLE TABLET ONE (03:21)
[2016-12-26] MEDS ORDERED: METHADONE HCL 10 MG TABLET ONE (03:21)
[2016-12-26] MEDS: METHADONE 160 MG, METHADONE 20 MG PO SCH (06:09)
[2016-12-26] MEDS: RANITIDINE HCL 150 MG TABLET (FP) PO SCH (06:10)
[2016-12-26 07:04] VITALS: BP 93/66; PULSE 90; TEMP 97.8
[2016-12-26] MEDS: FERROUS SO4 325 MG TABLET (FP) PO SCH (07:34)
[2016-12-26] MEDS: MENTHOL/PHENOL 1 EACH UD MM PRN (08:46)
[2016-12-26] MEDS ORDERED: PT OWN MED DRAWER 7, Y5N ONE (09:29)
[2016-12-26] MEDS: PRENATAL VITAMINS W/ FOLIC ACID TABLET (FP) PO SCH (09:41)
[2016-12-26] MEDS: NAPROXEN 500 MG TABLET (FP) PO SCH (09:41)
[2016-12-26] MEDS: LIDOCAINE 5% TOPICAL PATCH TP SCH (09:41)
[2016-12-26] MEDS: ARTIFICIAL TEARS (POLYVINYL ALCOHOL 1.4%) OPTH DROPS OU SCH (09:41)
[2016-12-26] MEDS: QUEtiapine FUMARATE 50 MG TABLET PO SCH (09:41)
[2016-12-26] MEDS: CYCLOBENZAPRINE HCL 10 MG TABLET (FP) PO SCH (09:41)
[2016-12-26] MEDS: METHYL SALICYLATE/MENTHOL OINT 30 GM TUBE TP SCH (09:42)
[2016-12-26] MEDS: NICOTINE 21 MG/24 HOURS TOPICAL PATCH TD SCH (09:42)
[2016-12-26] MEDS: HYDROCORTISONE 2.5% TOPICAL CREAM 30 GM TUBE PR SCH (09:42)
[2016-12-26] MEDS: DOCUSATE SODIUM 100 MG CAPSULE (FP) PO SCH (09:43)
--- NOTE | 2016-12-26 10:04 | PN ---
[id number] Date of Session: 12/26/16 Chief Complaint:: Discharge visit HPI: Patient addressed Alcohol,Cocaine,Opioid and Anxiolytic dependence comorbid with Substance induced mood disorder. ROS: HIV+,GERD,Hep C. Current Medications: Active Medications Generic Name Dose Route Start Last Admin Trade Name Freq PRN Reason Stop Dose Admin Acetaminophen 650 mg 11/28/16 13:49 11/30/16 07:37 Tylenol - PO 650 mg Q4H PRN Administration FEVER OR PAIN Al Hydroxide/Mg Hydroxide 30 ml 11/28/16 13:49 12/22/16 17:15 Mylanta Oral Suspension - PO 30 ml Q6H PRN Administration DYSPEPSIA Artificial Tears 1 drop 11/30/16 10:00 12/26/16 09:41 Artificial Tears OU 1 drop BID ROCIO Administration Cyclobenzaprine HCl 10 mg 11/28/16 22:00 12/26/16 09:41 Flexeril - PO 10 mg BID ROCIO Administration Diphenhydramine HCl 50 mg 11/28/16 13:49 12/25/16 21:27 Benadryl - PO 50 mg HSMR1 PRN Administration FOR ITCHING Docusate Sodium 100 mg 12/22/16 11:30 12/26/16 09:43 Colace - PO Not Given BID ROCIO Eucalyptus/Menthol/Phenol/Sorbitol 1 each 11/28/16 13:49 12/26/16 08:46 Cepastat Lozenge - MM 1 each Q4H PRN Administration SORE THROAT Ferrous Sulfate 325 mg 11/28/16 17:30 12/26/16 07:34 Feosol - PO 325 mg BIDWM ROCIO Administration Guaifenesin 10 ml 11/28/16 13:49 Robitussin Dm - PO Q6H PRN COUGH Hydrocortisone 1 applic 12/24/16 10:15 12/26/16 09:42 Anusol 2.5% Hc Cream - MD 1 applic DAILY ROCIO Administration Hydroxyzine Pamoate 50 mg 12/05/16 15:34 12/26/16 09:46 Vistaril - PO 50 mg Q4H PRN Administration ANXIETY Lidocaine 1 patch 12/09/16 13:45 12/26/16 09:41 Lidoderm Patch - TP 1 patch DAILY ROCIO Administration Loperamide HCl 4 mg 11/28/16 13:49 12/24/16 07:16 Imodium - PO 4 mg Q6H PRN Administration DIARRHEA Magnesium Hydroxide 30 ml 11/28/16 13:49 Milk Of Magnesia - PO DAILY PRN CONSTIPATION Methadone HCl 160 mg/ 180 mg 12/20/16 06:00 12/26/16 06:09 Methadone HCl 20 mg PO 12/27/16 05:59 180 mg DAILY@0600 ROCIO Administration Methyl Salicylate 1 applic 11/28/16 22:00 12/26/16 09:42 Mario-Welsh - TP 1 applic BID ROCIO Administration Multi-Ingredient Lotion 1 applic 12/08/16 14:43 Eucerin (Large Jar) - TP BID PRN DRY SKIN Naproxen 500 mg 11/28/16 22:00 12/26/16 09:41 Naprosyn - PO 500 mg BID ROCIO Administration Nicotine 21 mg 11/29/16 10:00 12/26/16 09:42 Nicoderm Patch - TD Not Given DAILY ROCIO Nicotine Polacrilex 2 mg 11/28/16 13:49 Nicorette Gum - BUC Q2H PRN NICOTINE REPLACEMENT RX Multivit/Folic Acid/Iron 1 tab 11/29/16 10:00 12/26/16 09:41 Vitamins (Sjr) - PO 1 tab DAILY ROCIO Administration Pseudoephedrine/Triprolidine 1 combo 11/28/16 13:49 12/20/16 16:55 Actifed - PO 1 combo TID PRN Administration NASAL CONGESTION Quetiapine Fumarate 50 mg 12/13/16 10:00 12/26/16 09:41 Seroquel - PO 50 mg DAILY ROCIO Administration Quetiapine Fumarate 100 mg 12/12/16 22:00 12/25/16 21:26 Seroquel - PO 100 mg HS ROCIO Administration Ranitidine HCl 150 mg 12/02/16 18:00 12/26/16 06:10 Zantac - PO 150 mg BID@0600,1800 ROCIO Administration Thiamine HCl 100 mg 11/28/16 22:00 12/25/16 21:26 Vitamin B1 - PO 100 mg HS ROCIO Administration Current Side Effect: No Lab tests ordered: No Lab tests reviewed: Yes Provider note:: Patient completed this program today.She has met her treatment goals and will continue to address his issues on outpatient basis.patient continues to find that Seroquel 50 mg po daily and 100 mg po hs help to reduce her mood instability,sleeping difficulties.Scripts for 30 days provided. Patient identifies areas of difficulties and skills,supptrs she can utilizeto maintain recovery. Patient is stable for discharge today. Total face to face time:: 35 Mental Status Exam - Mental Status Exam Alert and Oriented to: Time, Place, Person Cognitive Function: Grossly Intact Patient Appearance: Well Groomed Mood: Euthymic Affect: Mood Congruent Patient Behavior: Cooperative Speech Pattern: Clear Voice Loudness: Normal Thought Process: Goal Oriented Thought Disorder: Not Present Hallucinations: Denies Suicidal Ideation: Denies Insight/Judgement: Fair Sleep: Fair Appetite: Good Muscle strength/Tone: Normal Gait/Station: Antalgic (ambulatine with walker) Psychiatric Treatment Plan - Problem List (1) Alcohol dependence with uncomplicated withdrawal Comment: LIBRIUM REGIMEN (4) GERD (gastroesophageal reflux disease) Qualifiers: (5) HIV (human immunodeficiency virus infection) Comment: PATIENT HAS NOT BRING IN HER OWN MEDICATION (7) Methadone maintenance therapy patient Comment: 180 MG DIALY VERIFICAITON PENDING (8) Nicotine dependence Qualifiers: Nicotine product type: cigarettes Substance use status: uncomplicated Qualified Code(s): F17.210 - Nicotine dependence, cigarettes, uncomplicated
== END 2016-12-26 09:50 | disposition home or self-care (01) | DRG 772 ==
LOC: YASAS 13:29 → Y3E 13:30
PROVIDERS: ADMIT Psychiatry & Neurology Psychiatry; ATTEND Psychiatry & Neurology Psychiatry
PROC: HZ42ZZZ Group Counseling for Substance Abuse Treatment, Cognitive-Behavioral (ICD-10-PCS; principal; 2016-12-26)
DX: F11.20 Opioid dependence, uncomplicated (principal); F13.230 Sedative, hypnotic or anxiolytic dependence with withdrawal, uncomplicated; F14.20 Cocaine dependence, uncomplicated; F17.210 Nicotine dependence, cigarettes, uncomplicated; F19.24 Other psychoactive substance dependence with psychoactive substance-induced mood disorder; K21.9 Gastro-esophageal reflux disease without esophagitis; Z21 Asymptomatic human immunodeficiency virus [HIV] infection status; B18.2 Chronic viral hepatitis C; R63.4 Abnormal weight loss; Z68.31 Body mass index [BMI] 31.0-31.9, adult
CPT/HCPCS: 90670